=== PATIENT | female | born 1995 | race Caucasian/White ===

== ENCOUNTER → 2016-09-24 | Outpatient (CLI) | payer OTHER ==
[~2016-09-24] MED LIST: ALBUAER2 INH; FLUT110A INH; LEVO88TA PO
[2016-09-24 16:04] LABS: HEMATOCRIT 37.5 % (37-47); MEAN CORPUSCULAR HEMOGLOBIN 27.2 pg (25-34); MEAN CORPUSCULAR HGB CONC 32.8 g/dl (32-36); MEAN PLATELET VOLUME 9.7 fL (7.4-10.4); PLATELET COUNT 350 K/uL (130-400); RED BLOOD COUNT 4.52 M/uL (4.2-5.4); WHITE BLOOD COUNT 5.76 K/uL (4.8-10.8)
[2016-09-27 02:35] LABS: CHLAMYDIA TRACH RNA*** NOT DETECTED (NOT DETECTED); GC (NEIS GONORRHOEAE)RNA** NOT DETECTED (NOT DETECTED)
== END | disposition home or self-care (01) ==
LOC: C.LAB1850 15:28
PROVIDERS: ATTEND Obstetrics & Gynecology
DX: N93.9 Abnormal uterine and vaginal bleeding, unspecified (principal); Z11.3 Encounter for screening for infections with a predominantly sexual mode of transmission

== ENCOUNTER → 2017-01-03 | Outpatient (CLI) | payer OTHER ==
--- NOTE | 2017-01-03 11:02 | DIAGNOSTIC IMAGING REPORT ---
THYROID ULTRASOUND HISTORY: Goiter GOITER COMPARISON: 05/24/2015 FINDINGS: Right lobe: Maximum dimension 6.0 cm. Diffusely heterogeneous Left lobe: Maximum dimension 4.9 cm. Diffusely heterogeneous. Isthmus: No nodules. IMPRESSION: Diffuse heterogeneity of both thyroid lobes. No discrete nodule. No change from the prior exam. Electronically signed by: José Miguel Hunt M.D. 01/03/2017 11:00 AM Dictated Date/Time: 01/03/2017 10:59 AM
[2017-01-03 14:26] LABS: THYROID STIMULATING HORMONE 0.071 uIu/ml (0.300-4.500)
[2017-01-03 15:05] LABS: LYME DISEASE AB IGG NEG (NEG)
[2017-01-03 15:06] LABS: LYME DISEASE AB IGM NEG (NEG)
[2017-01-06 19:39] LABS: MICROSOMAL AB 7 IU/ML (<9); THYROGLOBULIN 1.3 NG/ML (2.8-40.9); TSI <89 % baseline (<140)
== END | disposition home or self-care (01) ==
LOC: C.ULTRBC 10:10
PROVIDERS: ATTEND Nurse Practitioner Family
DX: E04.9 Nontoxic goiter, unspecified (principal); E06.3 Autoimmune thyroiditis; M79.1 Myalgia

== ENCOUNTER → 2017-02-15 | Outpatient (CLI) | payer OTHER ==
[2017-02-15 12:44] LABS: THYROID STIMULATING HORMONE 3.91 uIu/ml (0.300-4.500)
== END | disposition home or self-care (01) ==
LOC: C.LAB1850 10:44
PROVIDERS: ATTEND Internal Medicine Endocrinology, Diabetes & Metabolism
DX: E06.9 Thyroiditis, unspecified (principal); M79.1 Myalgia; R20.9 Unspecified disturbances of skin sensation

== ENCOUNTER → 2017-06-24 | Outpatient (CLI) | payer OTHER ==
[2017-06-24 19:12] LABS: THYROID STIMULATING HORMONE 3.74 uIu/ml (0.300-4.500)
== END | disposition home or self-care (01) ==
LOC: C.LAB 17:54
PROVIDERS: ATTEND Internal Medicine Endocrinology, Diabetes & Metabolism
DX: R53.83 Other fatigue (principal); E06.3 Autoimmune thyroiditis

== ENCOUNTER → 2017-08-05 | Outpatient (CLI) | payer OTHER ==
[2017-08-05 16:50] LABS: MANUAL MICROSCOPIC REQUIRED? YES; URINE APPEARANCE CLOUDY (CLEAR); URINE BILIRUBIN NEG (NEG); URINE COLOR YELLOW; URINE NITRITE NEG (NEG); URINE PH 6.5 (4.5-7.5); UROBILINOGEN NEG (NEG)
[2017-08-05 16:52] LABS: REVIEW REQ? NO
[2017-08-05 17:09] LABS: URINE WBC >30 /hpf (0-5)
[2017-08-05 17:15] LABS: URINE BACTERIA 2+ (NEG); URINE RBC 0-4 /hpf (0-4)
== END | disposition home or self-care (01) ==
LOC: C.LABSPEC 15:54
PROVIDERS: ATTEND Physician Assistant
DX: R39.9 Unspecified symptoms and signs involving the genitourinary system (principal); N90.89 Other specified noninflammatory disorders of vulva and perineum

== ENCOUNTER → 2017-08-12 | Outpatient (CLI) | payer OTHER | END | disposition home or self-care (01) | LOC: C.LAB1850 16:14 | PROVIDERS: ATTEND Physician Assistant | DX: N90.89 Other specified noninflammatory disorders of vulva and perineum (principal) ==

== ENCOUNTER → 2017-08-20 | Outpatient (CLI) | payer OTHER | END | disposition home or self-care (01) | LOC: C.LABSPEC 17:33 | PROVIDERS: ATTEND Nurse Practitioner Adult Health | DX: J02.9 Acute pharyngitis, unspecified (principal) ==

== ENCOUNTER → 2017-08-20 | Outpatient (CLI) | payer OTHER | END | disposition home or self-care (01) | LOC: C.LABSPEC 13:43 | PROVIDERS: ATTEND Physician Assistant | DX: N94.819 Vulvodynia, unspecified (principal) ==

== ENCOUNTER → 2017-08-23 | Outpatient (CLI) | payer OTHER ==
[2017-08-23 12:17] LABS: ESTIMATED AVERAGE GLUCOSE 103 mg/dl; HA1C FLAG Normal (Normal)
== END | disposition home or self-care (01) ==
LOC: C.LAB1850 11:06
PROVIDERS: ATTEND Internal Medicine Endocrinology, Diabetes & Metabolism
DX: Z00.00 Encounter for general adult medical examination without abnormal findings (principal); R61 Generalized hyperhidrosis; R39.9 Unspecified symptoms and signs involving the genitourinary system

== ENCOUNTER 2020-03-16 09:49 | Inpatient (IN) ==
[2020-03-16] MEDS ORDERED: OXYTOCIN 30 UNITS/500 ML BAG IV PRN ×2 (14:00)
--- NOTE | 2020-03-16 14:13 | History & Physical Report ---
Date of Service March 16, 2020 Assessment & Plan (1) Post term over 40 weeks: -Tracing category 2 with accelerations and variability -Patient with documented cervical change -Patient is GBS positive, penicillin will be started per protocol -We will do rapid test for COVID-19 for laboring patient -Epidural per patient request -Reassess patient for membrane rupture after penicillin infusion and epidural placed History of Present Illness Chief Complaint: Contractions Primary Care Provider: NO PCP The patient is a 24-year-old 2 para 0 with an EDC of 14 March, at 40+ weeks gestational age who presents for evaluation of contractions. Patient states that she has been having contractions for the last 12 hours which increased in intensity. She denied rupture of membranes or vaginal bleeding. Patient was watched on labor and delivery for 4 hours and had cervical change and has been admitted. Patient's course was remarkable for late gestational care. Her new OB visit was at 18 weeks gestational age. Patient has a documented history of hypothyroidism with TSH is greater than 3. The patient has declined endoc rinology or therapy for the hypothyroidism throughout the . Patient was made aware repeatedly of the risks associated with untreated hypothyroidism in . Laboratory values for show blood type of O+, antibody negative, rubella immune, hepatitis B negative, she had a negative cell free DNA screen, she had a normal 1 hour Glucola x2, and a positive third trimester beta strep culture. Allergies Allergy/AdvReac Type Severity Reaction Status Date / Time No Known Allergies Allergy Unverified 03/15/20 10:09 Home Medications Home Medications Medication Instructions Recorded Confirmed Type prenat.vits,yaneli,yma-xcex-tuxvk 1 tab PO DAILY 10/02/19 03/15/20 History ferrous sulfate PO 01/06/20 03/14/20 History Patient History Family History (Updated 10/02/19 @ 14:32 by Brenna Nolan) Aunt Family history of diabetes mellitus Cystic fibrosis Mother Heart murmur Hypertension Depression Grandmother Thyroid disease Social History (Updated 10/02/19 @ 14:34 by Brenna Nolan) Preferred Language: [place] Citizen Communication Ability: Effective Monument Installer Required: No Beliefs That Will Affect Care: None marital status: marital status details: Jerome Harmon- (25) [phone] Current Living Situation: Spouse Current Living Situation Comment: lives with spouse, 1 cat, does not change litter current occupational status: employed current occupation: [employer] Other Information That Helps Us Care for You: No Feels Safe at Home: Yes Smoking Status: Never smoker Second Hand Exposure: No ; Hx Alcohol Use: No Hx Substance Use: No Physical Exam Constitutional: WD/WN, vitals as above Respiratory: Auscultation: lungs clear to auscultation bilaterally Cardiovascular: RRR, no murmur, no edema Extremities: no calf tenderness Gastrointestinal (Abdomen): Abdomen: Gravid, vertex, positive heart tones, estimated weight of 8 pounds Genitourinary: Cervix: 3-4/100/-2 Results & Data ([facility]) Vital Signs (Past 12 Hours) Vital Signs Temp Pulse Resp BP 03/16/20 14:00 98.1 F 03/16/20 13:59 103 H 133/82 03/16/20 12:50 98.2 F 18 03/16/20 12:47 90 120/81 03/16/20 10:10 98.2 F 20 03/16/20 09:57 95 H 129/78 03/16/20 09:56 98.2 F 20 Coding Level of Care Code None Diagnoses Post term over 40 weeks O48.0
[2020-03-16] MEDS ORDERED: PENICILLIN G POTASSIUM 6 MU in DEXTROSE 5% 250 ML IV ONE (14:15)
[2020-03-16 14:19] LABS: Hematocrit (blood only) 35.9 % (37-47); Hemoglobin 11.9 g/dL (12.0-16.0); Mean Corpuscular Hemoglobin 28.5 pg (25-34); Mean Corpuscular Volume 86.1 fL (80-100); Mean Platelet Volume 10.5 fL (7.4-10.4); Platelet Count 330 K/uL (130-400); RDW Standard Deviation 43.8 fL (36.4-46.3); Red Blood Count 4.17 M/uL (4.2-5.4); White Blood Count 13.49 K/uL (4.8-10.8)
[2020-03-16 14:20] LABS: Mean Corpuscular Hgb Conc 33.1 g/dL (32-36)
[2020-03-16] MEDS: LACTATED RINGER'S 1,000 ML IV PRN ×2 (14:22→20:15)
[2020-03-16] MEDS ORDERED: ePHEDrine sulfate 50 MG/ML AMP ONE (15:59)
[2020-03-16] MEDS ORDERED: BUPIVACAINE 0.25% 30 ML VIAL ONE (15:59)
[2020-03-16] MEDS ORDERED: fentaNYL 2MCG/ML ROPIV 1.25MG/ML 100 ML BAG EPI ONE (16:00)
[2020-03-16] MEDS ORDERED: fentaNYL citrate 100 MCG/2 ML VIAL ONE (16:00)
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
[2020-03-16] MEDS ORDERED: NALOXONE HCL 0.4 MG/1 ML VIAL/CARP IV PRN (16:49)
[2020-03-16] MEDS ORDERED: ePHEDrine sulfate 50 MG/ML AMP IV PRN (16:49)
[2020-03-16] MEDS ORDERED: NALOXONE HCL 1 MG in SODIUM CHLORIDE 0.9% 1000ML 1,000 ML IV PRN (16:49)
[2020-03-16] MEDS ORDERED: DiphenhydrAMINE HCL 50 MG/ML VIAL IV PRN (16:49)
[2020-03-16] MEDS: PENICILLIN G POTASSIUM 3 MU in DEXTROSE 5% 100 ML IV PRN ×2 (18:31→22:32)
--- NOTE | 2020-03-16 20:02 | Labor Progress Brief Note ---
Date of Service March 16, 2020 Subjective Reason For Note: Routine Evaluation comfortable with epidural Assessment & Plan (1) Post term over 40 weeks: - tracing Cat II, moderate variability with accels - no cervical change - IUPC placed - pitocin augmentation - COVID 19 Neg Admission and Anticipated Discharge Date Admission Date: March 16, 2020 Physical Exam Genitourinary: Cervix: 4/100/-2; AROM, clear, IUPC placed Results & Data ([facility]) Vital Signs (Past 12 Hours) Vital Signs Temp Pulse Resp BP Pulse Ox 03/16/20 19:56 115 H 100 03/16/20 19:51 121 H 96 03/16/20 19:46 85 113/59 L 93 03/16/20 19:44 87 94 03/16/20 19:41 90 100 03/16/20 19:36 91 H 99 03/16/20 19:32 81 108/59 L 03/16/20 19:31 87 100 03/16/20 19:26 97 H 100 03/16/20 19:21 91 H 99 03/16/20 19:16 123 H 100 03/16/20 19:11 108 H 100 03/16/20 19:06 107 H 100 03/16/20 19:05 98.4 F 18 03/16/20 19:01 100 H 109/59 L 100 03/16/20 19:00 18 03/16/20 18:56 88 97 03/16/20 18:51 92 H 100 03/16/20 18:46 99 H 107/64 100 03/16/20 18:41 93 H 100 03/16/20 18:36 94 H 100 03/16/20 18:31 99 H 100 03/16/20 18:30 95 H 107/63 03/16/20 18:26 97 H 100 03/16/20 18:21 92 H 100 03/16/20 18:16 90 107/57 L 100 03/16/20 18:11 90 99 03/16/20 18:06 91 H 99 03/16/20 18:01 93 H 100 03/16/20 18:00 90 103/59 L 03/16/20 17:56 87 100 03/16/20 17:51 105 H 100 03/16/20 17:46 88 100 03/16/20 17:45 91 H 103/58 L 03/16/20 17:42 95 H 90 03/16/20 17:41 96 H 18 97 03/16/20 17:36 87 100 03/16/20 17:31 90 100 03/16/20 17:30 100 H 115/67 03/16/20 17:26 91 H 100 03/16/20 17:21 88 100 03/16/20 17:20 18 03/16/20 17:16 88 114/65 100 03/16/20 17:11 83 100 03/16/20 17:06 83 100 03/16/20 17:04 84 91 03/16/20 17:01 81 116/64 100 03/16/20 16:56 90 97 03/16/20 16:51 89 99 03/16/20 16:50 18 03/16/20 16:46 92 H 99 03/16/20 16:43 104 H 126/70 03/16/20 16:41 98 H 100 03/16/20 16:40 105 H 125/66 03/16/20 16:37 100 H 123/64 03/16/20 16:36 95 H 99 03/16/20 16:34 118/57 L 03/16/20 16:31 101 H 115/59 L 99 03/16/20 16:28 90 130/72 03/16/20 16:26 94 H 99 03/16/20 16:21 108 H 100 03/16/20 16:16 81 100 03/16/20 16:11 80 99 03/16/20 16:06 83 99 03/16/20 16:05 90 129/71 03/16/20 15:50 18 03/16/20 14:50 18 03/16/20 14:24 18 03/16/20 14:00 98.1 F 18 03/16/20 13:59 103 H 133/82 03/16/20 12:50 98.2 F 18 03/16/20 12:47 90 120/81 03/16/20 10:10 98.2 F 20 03/16/20 09:57 95 H 129/78 03/16/20 09:56 98.2 F 20 Coding Level of Care Code None Diagnoses Post term over 40 weeks O48.0
[2020-03-17] MEDS: fentaNYL 2MCG/ML ROPIV 1.25MG/ML 100 ML BAG EPI PRN ×3 (00:52→14:15)
[2020-03-17] MEDS: PENICILLIN G POTASSIUM 3 MU in DEXTROSE 5% 100 ML IV PRN ×4 (02:15→14:14)
--- NOTE | 2020-03-17 03:23 | Labor Progress Brief Note ---
Date of Service March 17, 2020 Subjective Reason For Note: Routine Evaluation Assessment & Plan (1) Post term over 40 weeks: - tracing Cat II, moderate variability with accels - molding developing, but cervical change occuring - contractions not consistently 200 MVU's - will continue to increase pitocin Admission and Anticipated Discharge Date Admission Date: March 16, 2020 Physical Exam Genitourinary: 7/100/-2; posterior, molding Results & Data ([facility]) Vital Signs (Past 12 Hours) Vital Signs Temp Pulse Resp BP Pulse Ox 03/17/20 03:18 107 H 86 L 03/17/20 03:17 103 H 100 03/17/20 03:16 101 H 110/70 03/17/20 03:12 84 100 03/17/20 03:10 102 H 87 L 03/17/20 03:07 95 H 100 03/17/20 03:02 89 100 03/17/20 03:01 89 110/60 03/17/20 02:57 99 H 99 03/17/20 02:52 76 100 03/17/20 02:47 82 99 03/17/20 02:46 85 106/65 03/17/20 02:42 91 H 99 03/17/20 02:37 86 100 03/17/20 02:32 85 100 03/17/20 02:31 85 113/67 03/17/20 02:29 88 82 L 03/17/20 02:27 88 100 03/17/20 02:22 105 H 100 03/17/20 02:17 103 H 92 03/17/20 02:16 98.1 F 03/17/20 02:15 86 122/77 03/17/20 02:12 82 100 03/17/20 02:07 78 100 03/17/20 02:02 77 100 03/17/20 02:00 84 124/80 03/17/20 01:57 84 100 03/17/20 01:52 84 100 03/17/20 01:47 84 118/68 100 03/17/20 01:41 87 100 03/17/20 01:36 85 100 03/17/20 01:32 85 88 L 03/17/20 01:31 84 91 03/17/20 01:30 73 100/58 L 03/17/20 01:26 76 91 03/17/20 01:21 69 100 07/02/20 01:16 74 100 03/17/20 01:15 77 98/56 L 03/17/20 01:11 75 100 03/17/20 01:06 72 100 03/17/20 01:01 76 104/52 L 100 03/17/20 01:00 98.1 F 82 18 75 L 03/17/20 00:56 77 100 03/17/20 00:51 76 99 03/17/20 00:46 72 100 03/17/20 00:45 72 105/59 L 03/17/20 00:41 78 99 03/17/20 00:36 77 100 03/17/20 00:31 70 100/55 L 100 03/17/20 00:26 75 100 03/17/20 00:21 73 100 03/17/20 00:17 71 103/55 L 03/17/20 00:16 79 97 03/17/20 00:12 88 20 90 03/17/20 00:11 88 94 03/17/20 00:06 80 100 03/17/20 00:01 78 120/65 100 03/17/20 00:00 82 93 03/16/20 23:56 79 100 03/16/20 23:51 84 100 03/16/20 23:46 83 100 03/16/20 23:45 81 120/67 03/16/20 23:41 88 100 03/16/20 23:36 81 100 03/16/20 23:31 84 119/66 100 03/16/20 23:26 77 100 03/16/20 23:21 82 100 03/16/20 23:16 81 106/50 L 100 03/16/20 23:11 88 100 03/16/20 23:07 98.4 F 18 03/16/20 23:06 88 100 03/16/20 23:01 96 H 100 03/16/20 22:56 86 100 03/16/20 22:51 89 98 03/16/20 22:46 86 121/65 100 03/16/20 22:41 86 92 03/16/20 22:36 93 H 100 03/16/20 22:32 88 122/74 03/16/20 22:31 96 H 100 03/16/20 22:30 115 H 90 03/16/20 22:26 80 100 03/16/20 22:21 72 99 03/16/20 22:16 75 99 03/16/20 22:15 76 118/69 03/16/20 22:11 78 99 03/16/20 22:06 71 100 03/16/20 22:01 76 100 03/16/20 22:00 71 16 119/70 03/16/20 21:56 76 100 03/16/20 21:51 73 100 03/16/20 21:46 69 100 03/16/20 21:45 71 120/72 03/16/20 21:41 73 100 03/16/20 21:36 73 100 03/16/20 21:34 75 91 03/16/20 21:31 82 100 03/16/20 21:30 76 114/72 03/16/20 21:26 71 100 03/16/20 21:21 74 100 03/16/20 21:17 67 117/73 03/16/20 21:16 69 99 03/16/20 21:11 73 99 03/16/20 21:06 83 100 03/16/20 21:01 68 114/62 99 03/16/20 20:56 71 98 03/16/20 20:51 77 98 03/16/20 20:49 98.4 F 18 03/16/20 20:46 101 H 115/77 99 03/16/20 20:41 84 100 03/16/20 20:36 87 99 03/16/20 20:31 86 96 03/16/20 20:30 77 138/70 03/16/20 20:26 87 99 03/16/20 20:21 85 99 03/16/20 20:16 90 127/70 99 03/16/20 20:11 97 H 90 03/16/20 20:06 88 100 03/16/20 20:01 99 H 100 03/16/20 20:00 91 H 126/74 03/16/20 19:57 98.4 F 18 03/16/20 19:56 115 H 100 03/16/20 19:51 121 H 96 03/16/20 19:46 85 113/59 L 93 03/16/20 19:44 87 94 03/16/20 19:41 90 100 03/16/20 19:36 91 H 99 03/16/20 19:32 81 108/59 L 03/16/20 19:31 87 100 03/16/20 19:26 97 H 100 03/16/20 19:21 91 H 99 03/16/20 19:16 123 H 100 03/16/20 19:11 108 H 100 03/16/20 19:06 107 H 100 03/16/20 19:05 98.4 F 18 03/16/20 19:01 100 H 109/59 L 100 03/16/20 19:00 18 03/16/20 18:56 88 97 03/16/20 18:51 92 H 100 03/16/20 18:46 99 H 107/64 100 03/16/20 18:41 93 H 100 03/16/20 18:36 94 H 100 03/16/20 18:31 99 H 100 03/16/20 18:30 95 H 107/63 03/16/20 18:26 97 H 100 03/16/20 18:21 92 H 100 03/16/20 18:16 90 107/57 L 100 03/16/20 18:11 90 99 03/16/20 18:06 91 H 99 03/16/20 18:01 93 H 100 03/16/20 18:00 90 103/59 L 03/16/20 17:56 87 100 03/16/20 17:51 105 H 100 03/16/20 17:46 88 100 03/16/20 17:45 91 H 103/58 L 03/16/20 17:42 95 H 90 03/16/20 17:41 96 H 18 97 03/16/20 17:36 87 100 03/16/20 17:31 90 100 03/16/20 17:30 100 H 115/67 03/16/20 17:26 91 H 100 03/16/20 17:21 88 100 03/16/20 17:20 18 03/16/20 17:16 88 114/65 100 03/16/20 17:11 83 100 03/16/20 17:06 83 100 03/16/20 17:04 84 91 03/16/20 17:01 81 116/64 100 03/16/20 16:56 90 97 03/16/20 16:51 89 99 03/16/20 16:50 18 03/16/20 16:46 92 H 99 03/16/20 16:43 104 H 126/70 03/16/20 16:41 98 H 100 03/16/20 16:40 105 H 125/66 03/16/20 16:37 100 H 123/64 03/16/20 16:36 95 H 99 03/16/20 16:34 118/57 L 03/16/20 16:31 101 H 115/59 L 99 03/16/20 16:28 90 130/72 03/16/20 16:26 94 H 99 03/16/20 16:21 108 H 100 03/16/20 16:16 81 100 03/16/20 16:11 80 99 03/16/20 16:06 83 99 03/16/20 16:05 90 129/71 03/16/20 15:50 18 Coding Level of Care Code None Diagnoses Post term over 40 weeks O48.0
--- NOTE | 2020-03-17 06:38 | Labor Progress Brief Note ---
Date of Service March 17, 2020 Subjective Reason For Note: Routine Evaluation Assessment & Plan (1) Post term over 40 weeks: - tracing Cat II - pt making progress, but slow - will continue with pitocin Admission and Anticipated Discharge Date Admission Date: March 16, 2020 Physical Exam Genitourinary: Cervix: 8/100/-1,molding Results & Data ([facility]) Vital Signs (Past 12 Hours) Vital Signs Temp Pulse Resp BP Pulse Ox 03/17/20 06:33 95 H 100 03/17/20 06:32 97 H 134/82 03/17/20 06:27 92 H 100 03/17/20 06:22 98 H 100 03/17/20 06:17 99 H 100 03/17/20 06:15 85 112/57 L 03/17/20 06:12 84 100 03/17/20 06:07 91 H 100 03/17/20 06:02 91 H 108/50 L 100 03/17/20 06:01 83 82 L 03/17/20 05:57 103 H 97 03/17/20 05:52 82 99 03/17/20 05:47 81 100 03/17/20 05:45 86 128/71 03/17/20 05:42 83 100 03/17/20 05:37 83 100 03/17/20 05:32 98 H 100 03/17/20 05:31 79 130/73 03/17/20 05:27 78 99 03/17/20 05:22 79 98 03/17/20 05:17 88 125/71 100 03/17/20 05:15 97 H 125/77 03/17/20 05:12 82 98 03/17/20 05:07 82 99 03/17/20 05:02 95 H 100 03/17/20 05:01 84 126/76 03/17/20 05:00 16 03/17/20 04:57 79 98 03/17/20 04:52 80 99 03/17/20 04:47 88 99 03/17/20 04:46 80 128/73 03/17/20 04:42 83 99 03/17/20 04:37 79 98 03/17/20 04:32 83 98 03/17/20 04:31 78 120/68 03/17/20 04:27 79 98 03/17/20 04:22 88 100 03/17/20 04:17 89 98 03/17/20 04:15 86 116/70 03/17/20 04:12 81 98 03/17/20 04:07 80 98 03/17/20 04:04 98.6 F 18 03/17/20 04:02 82 98 03/17/20 04:01 85 118/71 03/17/20 03:57 86 99 03/17/20 03:52 79 99 03/17/20 03:47 84 100 03/17/20 03:46 80 114/55 L 03/17/20 03:42 88 100 03/17/20 03:37 88 100 03/17/20 03:33 99 H 88 L 03/17/20 03:32 107 H 100 03/17/20 03:31 91 H 129/79 03/17/20 03:27 105 H 95 03/17/20 03:24 20 03/17/20 03:22 105 H 99 03/17/20 03:18 107 H 86 L 03/17/20 03:17 103 H 100 03/17/20 03:16 101 H 110/70 03/17/20 03:12 84 100 03/17/20 03:10 102 H 87 L 03/17/20 03:07 95 H 100 03/17/20 03:02 89 100 03/17/20 03:01 89 110/60 03/17/20 02:57 99 H 99 03/17/20 02:52 76 100 03/17/20 02:47 82 99 03/17/20 02:46 85 106/65 03/17/20 02:42 91 H 99 03/17/20 02:37 86 100 03/17/20 02:32 85 100 03/17/20 02:31 85 113/67 03/17/20 02:29 88 82 L 03/17/20 02:27 88 100 03/17/20 02:22 105 H 100 03/17/20 02:17 103 H 92 03/17/20 02:16 98.1 F 03/17/20 02:15 86 122/77 03/17/20 02:12 82 100 03/17/20 02:07 78 100 03/17/20 02:02 77 100 03/17/20 02:00 84 124/80 03/17/20 01:57 84 100 03/17/20 01:52 84 100 03/17/20 01:47 84 118/68 100 03/17/20 01:41 87 100 03/17/20 01:36 85 100 03/17/20 01:32 85 88 L 03/17/20 01:31 84 91 03/17/20 01:30 73 100/58 L 03/17/20 01:26 76 91 03/17/20 01:21 69 100 03/17/20 01:16 74 100 03/17/20 01:15 77 98/56 L 03/17/20 01:11 75 100 03/17/20 01:06 72 100 03/17/20 01:01 76 104/52 L 100 03/17/20 01:00 98.1 F 82 18 75 L 03/17/20 00:56 77 100 03/17/20 00:51 76 99 03/17/20 00:46 72 100 03/17/20 00:45 72 105/59 L 03/17/20 00:41 78 99 03/17/20 00:36 77 100 03/17/20 00:31 70 100/55 L 100 03/17/20 00:26 75 100 03/17/20 00:21 73 100 03/17/20 00:17 71 103/55 L 03/17/20 00:16 79 97 03/17/20 00:12 88 20 90 03/17/20 00:11 88 94 03/17/20 00:06 80 100 03/17/20 00:01 78 120/65 100 03/17/20 00:00 82 93 03/16/20 23:56 79 100 03/16/20 23:51 84 100 03/16/20 23:46 83 100 03/16/20 23:45 81 120/67 03/16/20 23:41 88 100 03/16/20 23:36 81 100 03/16/20 23:31 84 119/66 100 03/16/20 23:26 77 100 03/16/20 23:21 82 100 03/16/20 23:16 81 106/50 L 100 03/16/20 23:11 88 100 03/16/20 23:07 98.4 F 18 03/16/20 23:06 88 100 03/16/20 23:01 96 H 100 03/16/20 22:56 86 100 03/16/20 22:51 89 98 03/16/20 22:46 86 121/65 100 03/16/20 22:41 86 92 03/16/20 22:36 93 H 100 03/16/20 22:32 88 122/74 03/16/20 22:31 96 H 100 03/16/20 22:30 115 H 90 03/16/20 22:26 80 100 03/16/20 22:21 72 99 03/16/20 22:16 75 99 03/16/20 22:15 76 118/69 03/16/20 22:11 78 99 03/16/20 22:06 71 100 03/16/20 22:01 76 100 03/16/20 22:00 71 16 119/70 03/16/20 21:56 76 100 03/16/20 21:51 73 100 03/16/20 21:46 69 100 03/16/20 21:45 71 120/72 03/16/20 21:41 73 100 03/16/20 21:36 73 100 03/16/20 21:34 75 91 03/16/20 21:31 82 100 03/16/20 21:30 76 114/72 03/16/20 21:26 71 100 03/16/20 21:21 74 100 03/16/20 21:17 67 117/73 03/16/20 21:16 69 99 03/16/20 21:11 73 99 03/16/20 21:06 83 100 03/16/20 21:01 68 114/62 99 03/16/20 20:56 71 98 03/16/20 20:51 77 98 03/16/20 20:49 98.4 F 18 03/16/20 20:46 101 H 115/77 99 03/16/20 20:41 84 100 03/16/20 20:36 87 99 03/16/20 20:31 86 96 03/16/20 20:30 77 138/70 03/16/20 20:26 87 99 03/16/20 20:21 85 99 03/16/20 20:16 90 127/70 99 03/16/20 20:11 97 H 90 03/16/20 20:06 88 100 03/16/20 20:01 99 H 100 03/16/20 20:00 91 H 126/74 03/16/20 19:57 98.4 F 18 03/16/20 19:56 115 H 100 03/16/20 19:51 121 H 96 03/16/20 19:46 85 113/59 L 93 03/16/20 19:44 87 94 03/16/20 19:41 90 100 03/16/20 19:36 91 H 99 03/16/20 19:32 81 108/59 L 03/16/20 19:31 87 100 03/16/20 19:26 97 H 100 03/16/20 19:21 91 H 99 03/16/20 19:16 123 H 100 03/16/20 19:11 108 H 100 03/16/20 19:06 107 H 100 03/16/20 19:05 98.4 F 18 03/16/20 19:01 100 H 109/59 L 100 03/16/20 19:00 18 03/16/20 18:56 88 97 03/16/20 18:51 92 H 100 03/16/20 18:46 99 H 107/64 100 03/16/20 18:41 93 H 100 03/16/20 18:36 94 H 100 Coding Level of Care Code None Diagnoses Post term over 40 weeks O48.0
[2020-03-17] MEDS: LACTATED RINGER'S 1,000 ML IV PRN (07:24)
--- NOTE | 2020-03-17 08:55 | Labor Progress Brief Note ---
Date of Service March 17, 2020 Subjective Patient uncomfortable with contractions, has a "hot spot." FHT Cat 1 [place] Q2 On pitocin, IUPC in place. My exam is 7-8/100/-1, some moulding of head. We discussed that this is not much different from Dr Ramirez's exam. Discussed that will continue to labor, will plan to recheck cervix in about 2 hours, and if no change will consider section. She is agreeable of this plan. Assessment & Plan Admission and Anticipated Discharge Date Admission Date: March 16, 2020 Results & Data ([facility]) Vital Signs (Past 12 Hours) Vital Signs Temp Pulse Resp BP Pulse Ox 03/17/20 08:43 94 H 98 03/17/20 08:38 92 H 100 03/17/20 08:36 97 H 77 L 03/17/20 08:33 89 100 03/17/20 08:30 81 131/76 03/17/20 08:28 84 100 03/17/20 08:23 84 100 03/17/20 08:18 80 98 03/17/20 08:15 77 133/74 03/17/20 08:13 82 99 03/17/20 08:08 103 H 99 03/17/20 08:06 114 H 83 L 03/17/20 08:03 100 H 100 03/17/20 08:00 90 129/71 03/17/20 07:58 97 H 97 03/17/20 07:53 85 99 03/17/20 07:48 85 99 03/17/20 07:45 98 H 128/70 03/17/20 07:43 93 H 100 03/17/20 07:40 105 H 88 L 03/17/20 07:38 105 H 91 03/17/20 07:33 102 H 97 03/17/20 07:30 18 03/17/20 07:28 115 H 98 03/17/20 07:23 98 H 98 03/17/20 07:18 36.9 C 109 H 18 98 03/17/20 07:15 102 H 125/67 03/17/20 07:13 88 100 03/17/20 07:08 101 H 99 03/17/20 07:03 95 H 100 03/17/20 07:01 88 127/71 03/17/20 06:58 94 H 100 03/17/20 06:53 101 H 99 03/17/20 06:48 101 H 99 03/17/20 06:45 101 H 118/69 03/17/20 06:43 108 H 99 03/17/20 06:38 108 H 98 03/17/20 06:36 109 H 88 L 03/17/20 06:33 95 H 100 03/17/20 06:32 97 H 134/82 03/17/20 06:27 92 H 100 03/17/20 06:22 98 H 100 03/17/20 06:17 99 H 100 03/17/20 06:15 36.9 C 85 18 112/57 L 03/17/20 06:12 84 100 03/17/20 06:07 91 H 100 03/17/20 06:02 91 H 108/50 L 100 03/17/20 06:01 83 82 L 03/17/20 05:57 103 H 97 03/17/20 05:52 82 99 03/17/20 05:47 81 100 03/17/20 05:45 86 128/71 03/17/20 05:42 83 100 03/17/20 05:37 83 100 03/17/20 05:32 98 H 100 03/17/20 05:31 79 130/73 03/17/20 05:27 78 99 03/17/20 05:22 79 98 03/17/20 05:17 88 125/71 100 03/17/20 05:15 97 H 125/77 03/17/20 05:12 82 98 03/17/20 05:07 82 99 03/17/20 05:02 95 H 100 03/17/20 05:01 84 126/76 03/17/20 05:00 16 03/17/20 04:57 79 98 03/17/20 04:52 80 99 03/17/20 04:47 88 99 03/17/20 04:46 80 128/73 03/17/20 04:42 83 99 03/17/20 04:37 79 98 03/17/20 04:32 83 98 03/17/20 04:31 78 120/68 03/17/20 04:27 79 98 03/17/20 04:22 88 100 03/17/20 04:17 89 98 03/17/20 04:15 86 116/70 0702/20 04:12 81 98 03/17/20 04:07 80 98 03/17/20 04:04 37.0 C 18 03/17/20 04:02 82 98 03/17/20 04:01 85 118/71 03/17/20 03:57 86 99 03/17/20 03:52 79 99 03/17/20 03:47 84 100 03/17/20 03:46 80 114/55 L 03/17/20 03:42 88 100 03/17/20 03:37 88 100 03/17/20 03:33 99 H 88 L 03/17/20 03:32 107 H 100 03/17/20 03:31 91 H 129/79 03/17/20 03:27 105 H 95 03/17/20 03:24 20 03/17/20 03:22 105 H 99 03/17/20 03:18 107 H 86 L 03/17/20 03:17 103 H 100 03/17/20 03:16 101 H 110/70 03/17/20 03:12 84 100 03/17/20 03:10 102 H 87 L 03/17/20 03:07 95 H 100 03/17/20 03:02 89 100 03/17/20 03:01 89 110/60 03/17/20 02:57 99 H 99 03/17/20 02:52 76 100 03/17/20 02:47 82 99 03/17/20 02:46 85 106/65 03/17/20 02:42 91 H 99 03/17/20 02:37 86 100 03/17/20 02:32 85 100 03/17/20 02:31 85 113/67 03/17/20 02:29 88 82 L 03/17/20 02:27 88 100 03/17/20 02:22 105 H 100 03/17/20 02:17 103 H 92 03/17/20 02:16 36.7 C 03/17/20 02:15 86 122/77 03/17/20 02:12 82 100 03/17/20 02:07 78 100 03/17/20 02:02 77 100 03/17/20 02:00 84 124/80 03/17/20 01:57 84 100 03/17/20 01:52 84 100 03/17/20 01:47 84 118/68 100 03/17/20 01:41 87 100 03/17/20 01:36 85 100 03/17/20 01:32 85 88 L 03/17/20 01:31 84 91 03/17/20 01:30 73 100/58 L 03/17/20 01:26 76 91 03/17/20 01:21 69 100 03/17/20 01:16 74 100 03/17/20 01:15 77 98/56 L 03/17/20 01:11 75 100 03/17/20 01:06 72 100 03/17/20 01:01 76 104/52 L 100 03/17/20 01:00 36.7 C 82 18 75 L 03/17/20 00:56 77 100 03/17/20 00:51 76 99 03/17/20 00:46 72 100 03/17/20 00:45 72 105/59 L 03/17/20 00:41 78 99 03/17/20 00:36 77 100 03/17/20 00:31 70 100/55 L 100 03/17/20 00:26 75 100 03/17/20 00:21 73 100 03/17/20 00:17 71 103/55 L 03/17/20 00:16 79 97 03/17/20 00:12 88 20 90 03/17/20 00:11 88 94 03/17/20 00:06 80 100 03/17/20 00:01 78 120/65 100 03/17/20 00:00 82 93 03/16/20 23:56 79 100 03/16/20 23:51 84 100 03/16/20 23:46 83 100 03/16/20 23:45 81 120/67 03/16/20 23:41 88 100 03/16/20 23:36 81 100 03/16/20 23:31 84 119/66 100 03/16/20 23:26 77 100 03/16/20 23:21 82 100 03/16/20 23:16 81 106/50 L 100 03/16/20 23:11 88 100 03/16/20 23:07 36.9 C 18 03/16/20 23:06 88 100 03/16/20 23:01 96 H 100 03/16/20 22:56 86 100 03/16/20 22:51 89 98 03/16/20 22:46 86 121/65 100 03/16/20 22:41 86 92 03/16/20 22:36 93 H 100 03/16/20 22:32 88 122/74 03/16/20 22:31 96 H 100 03/16/20 22:30 115 H 90 03/16/20 22:26 80 100 03/16/20 22:21 72 99 03/16/20 22:16 75 99 03/16/20 22:15 76 118/69 03/16/20 22:11 78 99 03/16/20 22:06 71 100 03/16/20 22:01 76 100 03/16/20 22:00 71 16 119/70 03/16/20 21:56 76 100 03/16/20 21:51 73 100 03/16/20 21:46 69 100 03/16/20 21:45 71 120/72 03/16/20 21:41 73 100 03/16/20 21:36 73 100 03/16/20 21:34 75 91 03/16/20 21:31 82 100 03/16/20 21:30 76 114/72 03/16/20 21:26 71 100 03/16/20 21:21 74 100 03/16/20 21:17 67 117/73 03/16/20 21:16 69 99 03/16/20 21:11 73 99 03/16/20 21:06 83 100 03/16/20 21:01 68 114/62 99 03/16/20 20:56 71 98 03/16/20 20:51 77 98 03/16/20 20:49 36.9 C 18 Coding Level of Care Code None
--- NOTE | 2020-03-17 11:37 | Labor Progress Brief Note ---
Date of Service March 17, 2020 Subjective Comfortable with epidural. FHT Cat 1 [place] Q 2 SVE 9/100/0 Will continue pitocin. There has been cervical change since last exam. Continue labor. Assessment & Plan Admission and Anticipated Discharge Date Admission Date: March 16, 2020 Results & Data ([facility]) Vital Signs (Past 12 Hours) Vital Signs Temp Pulse Resp BP Pulse Ox 03/17/20 11:33 88 93 03/17/20 11:30 96 H 140/73 03/17/20 11:28 118 H 73 L 03/17/20 11:23 96 H 100 03/17/20 11:18 115 H 97 03/17/20 11:13 106 H 100 03/17/20 11:08 90 100 03/17/20 11:03 98 H 98 03/17/20 11:01 87 138/58 L 03/17/20 10:58 97 H 100 03/17/20 10:53 89 98 03/17/20 10:52 96 H 85 L 03/17/20 10:50 36.9 C 18 03/17/20 10:48 86 100 03/17/20 10:45 100 H 142/69 H 03/17/20 10:43 86 100 03/17/20 10:38 93 H 97 03/17/20 10:33 85 100 03/17/20 10:30 88 135/69 03/17/20 10:28 88 99 03/17/20 10:23 84 99 03/17/20 10:18 85 100 03/17/20 10:16 85 136/74 03/17/20 10:13 102 H 84 L 03/17/20 10:10 16 03/17/20 10:08 82 99 03/17/20 10:03 83 99 03/17/20 10:02 94 H 122/62 03/17/20 09:58 84 98 03/17/20 09:53 89 99 03/17/20 09:48 89 99 03/17/20 09:46 85 131/68 03/17/20 09:43 84 99 03/17/20 09:40 18 03/17/20 09:38 83 99 03/17/20 09:33 83 99 03/17/20 09:30 85 119/66 03/17/20 09:28 82 99 03/17/20 09:23 87 100 03/17/20 09:18 81 99 03/17/20 09:15 90 114/63 03/17/20 09:13 84 100 03/17/20 09:08 85 100 03/17/20 09:03 90 88 L 03/17/20 09:02 86 84 L 03/17/20 09:00 87 18 113/64 03/17/20 08:58 90 99 03/17/20 08:55 87 88 L 03/17/20 08:53 97 H 98 03/17/20 08:48 86 100 03/17/20 08:46 95 H 128/59 L 03/17/20 08:43 94 H 98 03/17/20 08:38 92 H 100 03/17/20 08:37 36.9 C 18 03/17/20 08:36 97 H 77 L 03/17/20 08:33 89 100 03/17/20 08:30 81 18 131/76 03/17/20 08:28 84 100 03/17/20 08:23 84 100 03/17/20 08:18 80 98 03/17/20 08:15 77 133/74 03/17/20 08:13 82 99 03/17/20 08:08 103 H 99 03/17/20 08:06 114 H 83 L 03/17/20 08:03 100 H 100 03/17/20 08:00 90 129/71 03/17/20 07:58 97 H 97 03/17/20 07:53 85 99 03/17/20 07:48 85 99 03/17/20 07:45 98 H 128/70 03/17/20 07:43 93 H 100 03/17/20 07:40 105 H 88 L 03/17/20 07:38 105 H 91 03/17/20 07:33 102 H 97 03/17/20 07:30 18 03/17/20 07:28 115 H 98 03/17/20 07:23 98 H 98 03/17/20 07:18 36.9 C 109 H 18 98 03/17/20 07:15 102 H 125/67 03/17/20 07:13 88 100 03/17/20 07:08 101 H 99 03/17/20 07:03 95 H 100 03/17/20 07:01 88 127/71 03/17/20 06:58 94 H 100 03/17/20 06:53 101 H 99 03/17/20 06:48 101 H 99 03/17/20 06:45 101 H 118/69 03/17/20 06:43 108 H 99 03/17/20 06:38 108 H 98 03/17/20 06:36 109 H 88 L 03/17/20 06:33 95 H 100 03/17/20 06:32 97 H 134/82 03/17/20 06:27 92 H 100 03/17/20 06:22 98 H 100 03/17/20 06:17 99 H 100 03/17/20 06:15 36.9 C 85 18 112/57 L 03/17/20 06:12 84 100 03/17/20 06:07 91 H 100 03/17/20 06:02 91 H 108/50 L 100 03/17/20 06:01 83 82 L 03/17/20 05:57 103 H 97 03/17/20 05:52 82 99 03/17/20 05:47 81 100 03/17/20 05:45 86 128/71 03/17/20 05:42 83 100 03/17/20 05:37 83 100 03/17/20 05:32 98 H 100 03/17/20 05:31 79 130/73 03/17/20 05:27 78 99 03/17/20 05:22 79 98 03/17/20 05:17 88 125/71 100 03/17/20 05:15 97 H 125/77 03/17/20 05:12 82 98 03/17/20 05:07 82 99 03/17/20 05:02 95 H 100 03/17/20 05:01 84 126/76 03/17/20 05:00 16 03/17/20 04:57 79 98 03/17/20 04:52 80 99 03/17/20 04:47 88 99 03/17/20 04:46 80 128/73 03/17/20 04:42 83 99 03/17/20 04:37 79 98 03/17/20 04:32 83 98 03/17/20 04:31 78 120/68 03/17/20 04:27 79 98 03/17/20 04:22 88 100 03/17/20 04:17 89 98 03/17/20 04:15 86 116/70 03/17/20 04:12 81 98 03/17/20 04:07 80 98 03/17/20 04:04 37.0 C 18 03/17/20 04:02 82 98 03/17/20 04:01 85 118/71 03/17/20 03:57 86 99 03/17/20 03:52 79 99 03/17/20 03:47 84 100 03/17/20 03:46 80 114/55 L 03/17/20 03:42 88 100 03/17/20 03:37 88 100 03/17/20 03:33 99 H 88 L 03/17/20 03:32 107 H 100 03/17/20 03:31 91 H 129/79 03/17/20 03:27 105 H 95 03/17/20 03:24 20 03/17/20 03:22 105 H 99 03/17/20 03:18 107 H 86 L 03/17/20 03:17 103 H 100 03/17/20 03:16 101 H 110/70 03/17/20 03:12 84 100 03/17/20 03:10 102 H 87 L 03/17/20 03:07 95 H 100 03/17/20 03:02 89 100 03/17/20 03:01 89 110/60 03/17/20 02:57 99 H 99 03/17/20 02:52 76 100 03/17/20 02:47 82 99 03/17/20 02:46 85 106/65 03/17/20 02:42 91 H 99 03/17/20 02:37 86 100 03/17/20 02:32 85 100 03/17/20 02:31 85 113/67 03/17/20 02:29 88 82 L 03/17/20 02:27 88 100 03/17/20 02:22 105 H 100 03/17/20 02:17 103 H 92 03/17/20 02:16 36.7 C 03/17/20 02:15 86 122/77 03/17/20 02:12 82 100 03/17/20 02:07 78 100 03/17/20 02:02 77 100 03/17/20 02:00 84 124/80 03/17/20 01:57 84 100 03/17/20 01:52 84 100 03/17/20 01:47 84 118/68 100 03/17/20 01:41 87 100 03/17/20 01:36 85 100 03/17/20 01:32 85 88 L 03/17/20 01:31 84 91 03/17/20 01:30 73 100/58 L 03/17/20 01:26 76 91 03/17/20 01:21 69 100 03/17/20 01:16 74 100 03/17/20 01:15 77 98/56 L 03/17/20 01:11 75 100 03/17/20 01:06 72 100 03/17/20 01:01 76 104/52 L 100 03/17/20 01:00 36.7 C 82 18 75 L 03/17/20 00:56 77 100 03/17/20 00:51 76 99 03/17/20 00:46 72 100 03/17/20 00:45 72 105/59 L 03/17/20 00:41 78 99 03/17/20 00:36 77 100 03/17/20 00:31 70 100/55 L 100 03/17/20 00:26 75 100 03/17/20 00:21 73 100 03/17/20 00:17 71 103/55 L 03/17/20 00:16 79 97 03/17/20 00:12 88 20 90 03/17/20 00:11 88 94 03/17/20 00:06 80 100 03/17/20 00:01 78 120/65 100 03/17/20 00:00 82 93 03/16/20 23:56 79 100 03/16/20 23:51 84 100 03/16/20 23:46 83 100 03/16/20 23:45 81 120/67 03/16/20 23:41 88 100 03/16/20 23:36 81 100 Coding Level of Care Code None
--- NOTE | 2020-03-17 13:49 | Labor Progress Brief Note ---
Date of Service March 17, 2020 Subjective Feeling more pressure. FHT Cat 1 [place] Q 2 SVE rim with anterior lip/100/0 to +1 station Given that patient has made change, will continue to labor. Assessment & Plan Admission and Anticipated Discharge Date Admission Date: March 16, 2020 Results & Data ([facility]) Vital Signs (Past 12 Hours) Vital Signs Temp Pulse Resp BP Pulse Ox 03/17/20 13:46 108 H 86 L 03/17/20 13:43 109 H 100 03/17/20 13:41 100 H 87 L 03/17/20 13:38 93 H 94 03/17/20 13:33 87 98 03/17/20 13:31 86 135/80 03/17/20 13:29 96 H 84 L 03/17/20 13:28 96 H 92 03/17/20 13:23 94 H 100 03/17/20 13:21 99 H 89 L 03/17/20 13:18 107 H 100 03/17/20 13:15 88 131/77 03/17/20 13:14 102 H 84 L 03/17/20 13:13 106 H 94 03/17/20 13:08 97 H 100 03/17/20 13:03 85 100 03/17/20 13:00 93 H 132/80 03/17/20 12:58 93 H 99 03/17/20 12:53 87 100 03/17/20 12:48 89 100 03/17/20 12:45 96 H 127/73 03/17/20 12:43 85 100 03/17/20 12:38 82 100 03/17/20 12:34 102 H 88 L 03/17/20 12:33 94 H 100 03/17/20 12:32 102 H 128/76 03/17/20 12:30 18 03/17/20 12:28 91 H 99 03/17/20 12:23 84 100 03/17/20 12:18 90 100 03/17/20 12:15 110 H 124/80 03/17/20 12:13 82 100 03/17/20 12:08 86 100 03/17/20 12:03 83 100 03/17/20 12:00 83 124/74 03/17/20 11:58 84 100 03/17/20 11:53 85 100 03/17/20 11:50 18 03/17/20 11:48 87 100 03/17/20 11:46 96 H 85 L 03/17/20 11:45 98 H 131/84 03/17/20 11:43 96 H 89 L 03/17/20 11:40 87 86 L 03/17/20 11:38 96 H 94 03/17/20 11:34 93 H 87 L 03/17/20 11:33 88 93 03/17/20 11:30 96 H 140/73 03/17/20 11:28 118 H 73 L 03/17/20 11:23 96 H 100 03/17/20 11:18 115 H 97 03/17/20 11:13 106 H 100 03/17/20 11:08 90 100 03/17/20 11:03 98 H 98 03/17/20 11:01 87 138/58 L 03/17/20 10:58 97 H 100 03/17/20 10:53 89 98 03/17/20 10:52 96 H 85 L 03/17/20 10:50 36.9 C 18 03/17/20 10:48 86 100 03/17/20 10:45 100 H 142/69 H 03/17/20 10:43 86 100 03/17/20 10:38 93 H 97 03/17/20 10:33 85 100 03/17/20 10:30 88 135/69 03/17/20 10:28 88 99 03/17/20 10:23 84 99 03/17/20 10:18 85 100 03/17/20 10:16 85 136/74 03/17/20 10:13 102 H 84 L 03/17/20 10:10 16 03/17/20 10:08 82 99 03/17/20 10:03 83 99 03/17/20 10:02 94 H 122/62 03/17/20 09:58 84 98 03/17/20 09:53 89 99 03/17/20 09:48 89 99 03/17/20 09:46 85 131/68 03/17/20 09:43 84 99 03/17/20 09:40 18 03/17/20 09:38 83 99 03/17/20 09:33 83 99 03/17/20 09:30 85 119/66 03/17/20 09:28 82 99 03/17/20 09:23 87 100 0702/20 09:18 81 99 03/17/20 09:15 90 114/63 03/17/20 09:13 84 100 03/17/20 09:08 85 100 03/17/20 09:03 90 88 L 03/17/20 09:02 86 84 L 03/17/20 09:00 87 18 113/64 03/17/20 08:58 90 99 03/17/20 08:55 87 88 L 03/17/20 08:53 97 H 98 03/17/20 08:48 86 100 03/17/20 08:46 95 H 128/59 L 03/17/20 08:43 94 H 98 03/17/20 08:38 92 H 100 03/17/20 08:37 36.9 C 18 03/17/20 08:36 97 H 77 L 03/17/20 08:33 89 100 03/17/20 08:30 81 18 131/76 03/17/20 08:28 84 100 03/17/20 08:23 84 100 03/17/20 08:18 80 98 03/17/20 08:15 77 133/74 03/17/20 08:13 82 99 03/17/20 08:08 103 H 99 03/17/20 08:06 114 H 83 L 03/17/20 08:03 100 H 100 03/17/20 08:00 90 129/71 03/17/20 07:58 97 H 97 03/17/20 07:53 85 99 03/17/20 07:48 85 99 03/17/20 07:45 98 H 128/70 03/17/20 07:43 93 H 100 03/17/20 07:40 105 H 88 L 03/17/20 07:38 105 H 91 03/17/20 07:33 102 H 97 03/17/20 07:30 18 03/17/20 07:28 115 H 98 03/17/20 07:23 98 H 98 03/17/20 07:18 36.9 C 109 H 18 98 03/17/20 07:15 102 H 125/67 03/17/20 07:13 88 100 03/17/20 07:08 101 H 99 03/17/20 07:03 95 H 100 03/17/20 07:01 88 127/71 03/17/20 06:58 94 H 100 03/17/20 06:53 101 H 99 03/17/20 06:48 101 H 99 03/17/20 06:45 101 H 118/69 03/17/20 06:43 108 H 99 03/17/20 06:38 108 H 98 03/17/20 06:36 109 H 88 L 03/17/20 06:33 95 H 100 03/17/20 06:32 97 H 134/82 03/17/20 06:27 92 H 100 03/17/20 06:22 98 H 100 03/17/20 06:17 99 H 100 03/17/20 06:15 36.9 C 85 18 112/57 L 03/17/20 06:12 84 100 03/17/20 06:07 91 H 100 03/17/20 06:02 91 H 108/50 L 100 03/17/20 06:01 83 82 L 03/17/20 05:57 103 H 97 03/17/20 05:52 82 99 03/17/20 05:47 81 100 03/17/20 05:45 86 128/71 03/17/20 05:42 83 100 03/17/20 05:37 83 100 03/17/20 05:32 98 H 100 03/17/20 05:31 79 130/73 03/17/20 05:27 78 99 03/17/20 05:22 79 98 03/17/20 05:17 88 125/71 100 03/17/20 05:15 97 H 125/77 03/17/20 05:12 82 98 03/17/20 05:07 82 99 03/17/20 05:02 95 H 100 03/17/20 05:01 84 126/76 03/17/20 05:00 16 03/17/20 04:57 79 98 03/17/20 04:52 80 99 03/17/20 04:47 88 99 03/17/20 04:46 80 128/73 03/17/20 04:42 83 99 03/17/20 04:37 79 98 03/17/20 04:32 83 98 03/17/20 04:31 78 120/68 03/17/20 04:27 79 98 03/17/20 04:22 88 100 03/17/20 04:17 89 98 03/17/20 04:15 86 116/70 03/17/20 04:12 81 98 03/17/20 04:07 80 98 03/17/20 04:04 37.0 C 18 03/17/20 04:02 82 98 03/17/20 04:01 85 118/71 03/17/20 03:57 86 99 03/17/20 03:52 79 99 03/17/20 03:47 84 100 03/17/20 03:46 80 114/55 L 03/17/20 03:42 88 100 03/17/20 03:37 88 100 03/17/20 03:33 99 H 88 L 03/17/20 03:32 107 H 100 03/17/20 03:31 91 H 129/79 03/17/20 03:27 105 H 95 03/17/20 03:24 20 03/17/20 03:22 105 H 99 03/17/20 03:18 107 H 86 L 03/17/20 03:17 103 H 100 03/17/20 03:16 101 H 110/70 03/17/20 03:12 84 100 03/17/20 03:10 102 H 87 L 03/17/20 03:07 95 H 100 03/17/20 03:02 89 100 03/17/20 03:01 89 110/60 03/17/20 02:57 99 H 99 03/17/20 02:52 76 100 03/17/20 02:47 82 99 03/17/20 02:46 85 106/65 03/17/20 02:42 91 H 99 03/17/20 02:37 86 100 03/17/20 02:32 85 100 03/17/20 02:31 85 113/67 03/17/20 02:29 88 82 L 03/17/20 02:27 88 100 03/17/20 02:22 105 H 100 03/17/20 02:17 103 H 92 03/17/20 02:16 36.7 C 03/17/20 02:15 86 122/77 03/17/20 02:12 82 100 03/17/20 02:07 78 100 03/17/20 02:02 77 100 03/17/20 02:00 84 124/80 03/17/20 01:57 84 100 03/17/20 01:52 84 100 Coding Level of Care Code None
--- NOTE | 2020-03-17 16:45 | Labor Progress Brief Note ---
Date of Service March 17, 2020 Subjective Feeling pressure and urge to push with ctx. FHT Cat 1 [place] q 2-3 completely dilated, +1 to +2 station Continue pushing. Assessment & Plan Admission and Anticipated Discharge Date Admission Date: March 16, 2020 Results & Data ([facility]) Vital Signs (Past 12 Hours) Vital Signs Temp Pulse Resp BP Pulse Ox 03/17/20 16:41 103 H 83 L 03/17/20 16:38 100 H 99 03/17/20 16:36 107 H 88 L 03/17/20 16:33 99 H 99 03/17/20 16:31 102 H 89 L 03/17/20 16:30 91 H 135/70 03/17/20 16:28 90 100 03/17/20 16:24 105 H 83 L 03/17/20 16:23 94 H 100 03/17/20 16:18 104 H 100 03/17/20 16:15 94 H 134/63 03/17/20 16:13 94 H 99 03/17/20 16:08 102 H 98 03/17/20 16:07 115 H 82 L 03/17/20 16:03 113 H 84 L 03/17/20 16:00 100 H 130/62 03/17/20 15:59 101 H 86 L 03/17/20 15:58 97 H 100 03/17/20 15:53 106 H 100 03/17/20 15:48 103 H 100 03/17/20 15:46 99 H 142/75 H 03/17/20 15:45 18 03/17/20 15:43 104 H 86 L 03/17/20 15:41 113 H 84 L 03/17/20 15:38 98 H 88 L 03/17/20 15:34 108 H 87 L 03/17/20 15:33 104 H 100 03/17/20 15:30 114 H 18 143/63 H 03/17/20 15:28 116 H 100 03/17/20 15:23 107 H 97 03/17/20 15:22 121 H 86 L 03/17/20 15:18 106 H 99 03/17/20 15:15 129 H 132/84 03/17/20 15:13 105 H 99 03/17/20 15:08 90 100 03/17/20 15:03 97 H 99 03/17/20 15:01 89 132/81 07 15:00 18 03/17/20 14:58 91 H 98 03/17/20 14:53 98 H 99 03/17/20 14:48 93 H 98 03/17/20 14:46 90 132/78 03/17/20 14:43 92 H 99 03/17/20 14:38 90 99 03/17/20 14:33 92 H 100 03/17/20 14:31 97 H 134/78 03/17/20 14:28 90 99 03/17/20 14:23 98 H 100 03/17/20 14:20 37.7 C H 18 03/17/20 14:18 96 H 99 03/17/20 14:16 96 H 124/79 03/17/20 14:13 96 H 99 03/17/20 14:08 95 H 99 03/17/20 14:03 95 H 100 03/17/20 14:00 104 H 133/73 03/17/20 13:58 98 H 100 03/17/20 13:57 106 H 83 L 03/17/20 13:53 108 H 98 03/17/20 13:52 112 H 83 L 03/17/20 13:49 38.1 C H 18 03/17/20 13:48 105 H 93 03/17/20 13:46 108 H 86 L 03/17/20 13:43 109 H 100 03/17/20 13:41 100 H 87 L 03/17/20 13:38 93 H 94 03/17/20 13:33 87 98 03/17/20 13:31 86 135/80 03/17/20 13:30 18 03/17/20 13:29 96 H 84 L 03/17/20 13:28 96 H 92 03/17/20 13:23 94 H 100 03/17/20 13:21 99 H 89 L 03/17/20 13:20 18 03/17/20 13:18 107 H 100 03/17/20 13:15 88 131/77 03/17/20 13:14 102 H 84 L 03/17/20 13:13 106 H 94 03/17/20 13:08 97 H 100 03/17/20 13:03 85 100 03/17/20 13:00 93 H 132/80 03/17/20 12:58 93 H 99 07/02/20 12:53 87 100 03/17/20 12:48 89 100 03/17/20 12:45 96 H 127/73 03/17/20 12:43 85 100 03/17/20 12:38 82 100 03/17/20 12:34 102 H 88 L 03/17/20 12:33 94 H 100 03/17/20 12:32 102 H 128/76 03/17/20 12:30 18 03/17/20 12:28 91 H 99 03/17/20 12:23 84 100 03/17/20 12:20 18 03/17/20 12:18 90 100 03/17/20 12:15 110 H 124/80 03/17/20 12:13 82 100 03/17/20 12:08 86 100 03/17/20 12:03 83 100 03/17/20 12:00 83 124/74 03/17/20 11:58 84 100 03/17/20 11:53 85 100 03/17/20 11:50 18 03/17/20 11:48 87 100 03/17/20 11:46 96 H 85 L 03/17/20 11:45 98 H 131/84 03/17/20 11:43 96 H 89 L 03/17/20 11:40 87 86 L 03/17/20 11:38 96 H 94 03/17/20 11:34 93 H 87 L 03/17/20 11:33 88 93 03/17/20 11:30 96 H 140/73 03/17/20 11:28 118 H 73 L 03/17/20 11:23 96 H 100 03/17/20 11:18 115 H 97 03/17/20 11:13 106 H 100 03/17/20 11:08 90 100 03/17/20 11:03 98 H 98 03/17/20 11:01 87 138/58 L 03/17/20 10:58 97 H 100 03/17/20 10:53 89 98 03/17/20 10:52 96 H 85 L 03/17/20 10:50 36.9 C 18 03/17/20 10:48 86 100 03/17/20 10:45 100 H 142/69 H 03/17/20 10:43 86 100 03/17/20 10:38 93 H 97 03/17/20 10:33 85 100 03/17/20 10:30 88 135/69 03/17/20 10:28 88 99 03/17/20 10:23 84 99 03/17/20 10:18 85 100 03/17/20 10:16 85 136/74 03/17/20 10:13 102 H 84 L 03/17/20 10:10 16 03/17/20 10:08 82 99 03/17/20 10:03 83 99 03/17/20 10:02 94 H 122/62 03/17/20 09:58 84 98 03/17/20 09:53 89 99 03/17/20 09:48 89 99 03/17/20 09:46 85 131/68 03/17/20 09:43 84 99 03/17/20 09:40 18 03/17/20 09:38 83 99 03/17/20 09:33 83 99 03/17/20 09:30 85 119/66 03/17/20 09:28 82 99 03/17/20 09:23 87 100 03/17/20 09:18 81 99 03/17/20 09:15 90 114/63 03/17/20 09:13 84 100 03/17/20 09:08 85 100 03/17/20 09:03 90 88 L 03/17/20 09:02 86 84 L 03/17/20 09:00 87 18 113/64 03/17/20 08:58 90 99 03/17/20 08:55 87 88 L 03/17/20 08:53 97 H 98 03/17/20 08:48 86 100 03/17/20 08:46 95 H 128/59 L 03/17/20 08:43 94 H 98 03/17/20 08:38 92 H 100 03/17/20 08:37 36.9 C 18 03/17/20 08:36 97 H 77 L 03/17/20 08:33 89 100 03/17/20 08:30 81 18 131/76 03/17/20 08:28 84 100 03/17/20 08:23 84 100 03/17/20 08:18 80 98 03/17/20 08:15 77 133/74 03/17/20 08:13 82 99 03/17/20 08:08 103 H 99 03/17/20 08:06 114 H 83 L 03/17/20 08:03 100 H 100 03/17/20 08:00 90 129/71 03/17/20 07:58 97 H 97 03/17/20 07:53 85 99 03/17/20 07:48 85 99 03/17/20 07:45 98 H 128/70 03/17/20 07:43 93 H 100 03/17/20 07:40 105 H 88 L 03/17/20 07:38 105 H 91 03/17/20 07:33 102 H 97 03/17/20 07:30 18 03/17/20 07:28 115 H 98 03/17/20 07:23 98 H 98 03/17/20 07:18 36.9 C 109 H 18 98 03/17/20 07:15 102 H 125/67 03/17/20 07:13 88 100 03/17/20 07:08 101 H 99 03/17/20 07:03 95 H 100 03/17/20 07:01 88 127/71 03/17/20 06:58 94 H 100 03/17/20 06:53 101 H 99 03/17/20 06:48 101 H 99 03/17/20 06:45 101 H 118/69 03/17/20 06:43 108 H 99 03/17/20 06:38 108 H 98 03/17/20 06:36 109 H 88 L 03/17/20 06:33 95 H 100 03/17/20 06:32 97 H 134/82 03/17/20 06:27 92 H 100 03/17/20 06:22 98 H 100 03/17/20 06:17 99 H 100 03/17/20 06:15 36.9 C 85 18 112/57 L 03/17/20 06:12 84 100 03/17/20 06:07 91 H 100 03/17/20 06:02 91 H 108/50 L 100 03/17/20 06:01 83 82 L 03/17/20 05:57 103 H 97 03/17/20 05:52 82 99 03/17/20 05:47 81 100 03/17/20 05:45 86 128/71 03/17/20 05:42 83 100 03/17/20 05:37 83 100 03/17/20 05:32 98 H 100 03/17/20 05:31 79 130/73 03/17/20 05:27 78 99 03/17/20 05:22 79 98 03/17/20 05:17 88 125/71 100 03/17/20 05:15 97 H 125/77 03/17/20 05:12 82 98 03/17/20 05:07 82 99 03/17/20 05:02 95 H 100 03/17/20 05:01 84 126/76 03/17/20 05:00 16 03/17/20 04:57 79 98 03/17/20 04:52 80 99 03/17/20 04:47 88 99 03/17/20 04:46 80 128/73 Coding Level of Care Code None
--- NOTE | 2020-03-17 18:23 | History & Physical Bridge Note ---
Date of Service March 17, 2020 History & Physical Bridge Note I have examined the patient, reviewed the History & Physical and in the interval since the performance of the History & Physical I have noted the following changes of clinical significance: no changes noted Patient has been pushing at this point for 3 hours. She has made some progress of the station, from 0 to +1 station, but has been unable to bring the baby's head down far enough for delivery. She is, at this point, stating "I am exhausted, I would like a ." I have counseled patient, reviewed risks/benefits/alternatives, and she is agreeable to proceed. Informed consent obtained. Will proceed to OR for section for failure to descend.
[2020-03-17] MEDS ORDERED: CITRIC ACID/SODIUM CITRATE 15 ML UDC ONE (18:39)
[2020-03-17] MEDS ORDERED: LACTATED RINGER'S 1,000 ML IV SCH ×2 (18:45→20:28)
[2020-03-17] MEDS ORDERED: NALOXONE HCL 1 MG in SODIUM CHLORIDE 0.9% 1000ML 1,000 ML IV PRN (18:54)
[2020-03-17] MEDS ORDERED: DiphenhydrAMINE HCL 50 MG/ML VIAL IV PRN ×2 (18:54→20:28)
[2020-03-17] MEDS ORDERED: PROMETHAZINE HCL 25 MG in SODIUM CHLORIDE 0.9% 50 ML IV PRN (18:54)
[2020-03-17] MEDS ORDERED: NALOXONE HCL 0.08 MG in SYRINGE 1.8 ML IV PRN (18:54)
[2020-03-17] MEDS ORDERED: ONDANSETRON INJ 2 MG/ML 2 ML VIAL IV PRN (18:54)
[2020-03-17] MEDS ORDERED: NALOXONE HCL 0.4 MG/1 ML VIAL/CARP IV PRN (18:54)
[2020-03-17] MEDS ORDERED: LACTATED RINGER'S 500 ML IV PRN (18:54)
[2020-03-17] MEDS ORDERED: MoRPHine SULFATE PF 1 MG/ML 10 ML AMP/VIAL EPI ONE (18:54)
[2020-03-17] MEDS ORDERED: HYDROmorphone INJ 0.5 MG/0.5 ML SYR IV PRN (18:54)
[2020-03-17] MEDS ORDERED: ePHEDrine sulfate 50 MG/ML AMP IV PRN (18:54)
[2020-03-17] MEDS ORDERED: OXYTOCIN 10 UNITS/ML VIAL ONE (18:56)
[2020-03-17] MEDS ORDERED: LIDOCAINE/EPINEPHRINE 2% 1:200,000 20 ML SDV ONE ×2 (18:56→19:10)
[2020-03-17] MEDS ORDERED: MoRPHine SULFATE PF 1 MG/ML 10 ML AMP/VIAL ONE (18:57)
[2020-03-17] MEDS ORDERED: NO NARCOTICS OR SEDATIVES SCH (19:00)
[2020-03-17] MEDS ORDERED: SODIUM CHLORIDE 0.9% 1000ML 1,000 ML IV SCH (19:00)
[2020-03-17] MEDS ORDERED: CEFAZOLIN 2000MG 2,000 MG/15 ML SYR IV SCH (19:00)
[2020-03-17] MEDS ORDERED: METHYLERGONOVINE MALEATE 0.2 MG/ML AMP ONE (19:26)
[2020-03-17] MEDS ORDERED: MEPERIDINE HCL 25 MG/ML CARP/VIAL ONE (19:36)
--- NOTE | 2020-03-17 20:23 | Operative Report ---
PG Post Operative Report Pre & Post Diagnosis Operation Date: 03/17/20 19:00 Pre-Op Diagnosis: Failure to descend Post-Op Diagnosis: Same as pre-op I identified the patient and participated in the time-out.: Yes Procedure Operation Date: 03/17/20 19:00 Actual Procedures p Primary Low transverse Section in - Gayle Roblero DO Surgeon Gayle Roblero DO Manager Case Management Merary Liu RN Estimated Blood Loss 500 Findings Consistent with Post-Op Diagnosis Normal appearing uterus, tubes, ovaries. Viable male , Apgars 8/9. Weight 9#5. Specimens placenta, cord blood Drains parkinson, clear yellow Anesthesia Type L&D Only Epidural Exists Complications none Disposition Accompanied Patient To Recovery: No Disposition: L&D Indications 24yo @ 40 3/, presented in labor, progressed to complete dilation. She pushed for 3 hours, unable to descend beyond 1 to 2+ station. Description of Procedure Patient was taken to the operating room, 2 g of Ancef were administered. Her labor epidural was redosed. Timeout was confirmed. She is prepared and draped in the usual sterile fashion in the supine position with a leftward tilt. Anesthesia was found to be adequate. A Pfannenstiel skin incision was made with a scalpel, and carried through to the underlying layer of fascia. Fascia was nicked at midline, and this incision was extended bilaterally bluntly. The superior aspect of the fascial incision was grasped with Coretta clamps x2, elevated off the underlying rectus abdominis muscles, and dissected bluntly and sharply. In a similar fashion, the inferior aspect of the incision incision was dissected. The rectus abdominis muscles were midline. The peritoneum was entered bluntly digitally. This incision was extended bilaterally. The bladder blade was placed. The bladder flap was taken down using Metzenbaum scissors and [place]'s. The bladder blade was replaced. A low transverse uterine incision was made with a new scalpel. This incision was extended by bilaterally bluntly. The was delivered from a cephalic presentation, no nuchal cord was noted. The anterior shoulder was delivered, followed by the posterior shoulder, followed by the body. Spontaneous cry was heard on the field. The cord was doubly clamped and cut, and the baby was handed off to the waiting strapper. A cord segment was obtained for cord gases. Cord blood was obtained. The placenta was delivered spontaneously and intact with a three-vessel cord. The uterus was exteriorized, and cleared of all clots and debris. The hysterotomy incision was reapproximated using 0 Vicryl in a running locked stitch. A second layer of the same suture was used to imbricate the incision. The uterus was still somewhat atonic, and the patient was given a dose of Methergine by anesthesia. Additionally, uterine massage was performed. The posterior uterus was found to be normal. The uterine tone improved significantly. The hysterotomy incision was evaluated and found to be hemostatic. The uterus was returned to the abdomen. Gutters were cleared of all clots and debris. Again, the hysterotomy incision appeared hemostatic. However, at the location where the bladder flap was taken down inferior to the incision, there was a small amount of oozing. Therefore, Elvin powder was used in that area and this obtained excellent hemostasis. The fascial incision was reapproximated using 0 Vicryl in a running stitch. The subcutaneous tissue was irrigated, and reapproximated using 2-0 plain gut in a running stitch. The skin was reapproximated using 4-0 Vicryl in a running subcuticular stitch. Steri-Strips and a bandage were applied. The patient tolerated the procedure well, and was taken to her room at labor and delivery for recovery in stable and good condition. I attest to the content of the Intraoperative Record and any orders documented therein. Any exceptions are noted below.
[2020-03-17] MEDS ORDERED: SUPERCREAM 0.870% 15 GM JAR EXT PRN (20:28)
[2020-03-17] MEDS ORDERED: SENNA 8.6 MG TAB PO PRN (20:28)
[2020-03-17] MEDS ORDERED: BENZOCAINE 20% AER SPR 82.5 GM CAN EXT PRN (20:28)
[2020-03-17] MEDS ORDERED: MAGNESIUM HYDROXIDE SUSP 30 ML UDC PO PRN (20:28)
[2020-03-17] MEDS ORDERED: HYDROCORTISONE ACETATE 25 MG SUPP PR PRN (20:28)
[2020-03-17] MEDS ORDERED: DIPHTHERIA/TETANUS/PERTUSSIS 0.5 ML SYR/VIAL IM ONE (20:28)
[2020-03-17] MEDS: OXYTOCIN 30 UNITS in LACTATED RINGER'S 1,000 ML IV SCH (20:44)
[2020-03-17 20:45] LABS: Base Excess Cord Arterial Bld 0.3 mEq/L (-9-1.8); CO2 Cord Arterial Blood 53 mmHg (39.1-73.5); HCO3 Cord Arterial Blood 27 mmol/L (19.7-28.5); PO2 Cord Arterial Blood 13 mmHg (4.1-31.7); pH Cord Arterial Blood 7.33 (7.1-7.38)
[2020-03-17 20:46] LABS: Base Excess Cord Venous Blood -0.1 mEq/L (-7.7-1.9); Cord Venous Blood HCO3 24 mmol/L (18.4-26.8); Cord Venous Blood PCO2 39 mmHg (30.4-57.2); Cord Venous Blood PO2 27 mmHg (14.1-43.3); Cord Venous Blood pH 7.42 (7.20-7.44); O2 Saturation Cord Venous Bld 63.2 % (<68)
[2020-03-17 20:47] LABS: Oxygen Sat Cord Arterial Blood < 60.0 % (<60)
--- NOTE | 2020-03-17 20:59 | Anesthesiology Progress Note ---
Date of Service March 17, 2020 Anesthesia Post Procedure Vital Signs Vital Signs: Temp Pulse Resp BP Pulse Ox 03/17/20 20:57 105 H 116/77 03/17/20 20:55 87 96 03/17/20 20:50 90 96 03/17/20 20:47 113 H 122/58 L 03/17/20 20:45 105 H 96 03/17/20 20:40 97 H 96 03/17/20 20:37 122 H 118/63 03/17/20 20:35 113 H 138/74 96 03/17/20 20:30 118 H 94 03/17/20 20:28 100 H 90 03/17/20 20:27 96 H 129/67 03/17/20 20:25 93 H 82 L 03/17/20 20:21 102 H 86 L 03/17/20 20:20 99 H 100 03/17/20 20:17 89 129/60 03/17/20 20:15 95 H 100 03/17/20 20:10 92 H 100 03/17/20 20:07 100 H 129/63 03/17/20 20:05 104 H 100 03/17/20 18:58 116 H 100 03/17/20 18:53 103 H 100 03/17/20 18:48 117 H 100 03/17/20 18:45 105 H 120/79 03/17/20 18:44 111 H 82 L 03/17/20 18:43 111 H 100 03/17/20 18:38 102 H 100 03/17/20 18:33 112 H 127/82 100 03/17/20 18:28 106 H 100 03/17/20 18:23 103 H 99 03/17/20 18:18 110 H 100 03/17/20 18:13 106 H 100 03/17/20 18:08 126 H 100 03/17/20 18:03 110 H 99 03/17/20 18:01 105 H 125/60 03/17/20 18:00 37.8 C H 18 03/17/20 17:58 108 H 71 L 03/17/20 17:57 102 H 124/71 03/17/20 17:53 109 H 99 03/17/20 17:50 109 H 80 L 03/17/20 17:48 105 H 100 03/17/20 17:45 100 H 79 L 03/17/20 17:43 97 H 100 03/17/20 17:38 94 H 100 03/17/20 17:33 97 H 100 03/17/20 17:31 90 127/68 03/17/20 17:30 102 H 18 85 L 03/17/20 17:28 91 H 100 03/17/20 17:24 18 03/17/20 17:23 98 H 85 L 03/17/20 17:18 103 H 100 03/17/20 17:17 116 H 85 L 03/17/20 17:13 95 H 99 03/17/20 17:08 99 H 91 03/17/20 17:04 104 H 86 L 03/17/20 17:03 106 H 100 03/17/20 17:02 115 H 101/56 L 03/17/20 16:58 109 H 98 03/17/20 16:53 101 H 98 03/17/20 16:48 94 H 99 03/17/20 16:45 105 H 129/62 03/17/20 16:43 97 H 100 03/17/20 16:41 103 H 83 L 03/17/20 16:38 100 H 99 03/17/20 16:36 107 H 88 L 03/17/20 16:33 99 H 99 03/17/20 16:31 102 H 89 L 03/17/20 16:30 91 H 135/70 03/17/20 16:28 90 100 03/17/20 16:24 105 H 83 L 03/17/20 16:23 94 H 100 03/17/20 16:18 104 H 100 03/17/20 16:15 94 H 134/63 03/17/20 16:13 94 H 99 03/17/20 16:08 102 H 98 03/17/20 16:07 115 H 82 L 03/17/20 16:03 113 H 84 L 03/17/20 16:00 100 H 130/62 03/17/20 15:59 101 H 86 L 03/17/20 15:58 97 H 100 03/17/20 15:53 106 H 100 03/17/20 15:48 103 H 100 03/17/20 15:46 99 H 142/75 H 03/17/20 15:45 18 03/17/20 15:43 104 H 86 L 03/17/20 15:41 113 H 84 L 03/17/20 15:38 98 H 88 L 03/17/20 15:34 108 H 87 L 03/17/20 15:33 104 H 100 03/17/20 15:30 114 H 18 143/63 H 03/17/20 15:28 116 H 100 03/17/20 15:23 107 H 97 03/17/20 15:22 121 H 86 L 03/17/20 15:18 106 H 99 03/17/20 15:15 129 H 132/84 03/17/20 15:13 105 H 99 03/17/20 15:08 90 100 03/17/20 15:03 97 H 99 03/17/20 15:01 89 132/81 03/17/20 15:00 18 03/17/20 14:58 91 H 98 03/17/20 14:53 98 H 99 03/17/20 14:48 93 H 98 03/17/20 14:46 90 132/78 03/17/20 14:43 92 H 99 03/17/20 14:38 90 99 03/17/20 14:33 92 H 100 03/17/20 14:31 97 H 134/78 03/17/20 14:28 90 99 03/17/20 14:23 98 H 100 03/17/20 14:20 37.7 C H 18 03/17/20 14:18 96 H 99 03/17/20 14:16 96 H 124/79 03/17/20 14:13 96 H 99 03/17/20 14:08 95 H 99 03/17/20 14:03 95 H 100 03/17/20 14:00 104 H 133/73 03/17/20 13:58 98 H 100 03/17/20 13:57 106 H 83 L 03/17/20 13:53 108 H 98 03/17/20 13:52 112 H 83 L 03/17/20 13:49 38.1 C H 18 03/17/20 13:48 105 H 93 03/17/20 13:46 108 H 86 L 03/17/20 13:43 109 H 100 03/17/20 13:41 100 H 87 L 03/17/20 13:38 93 H 94 03/17/20 13:33 87 98 03/17/20 13:31 86 135/80 0702/20 13:30 18 03/17/20 13:29 96 H 84 L 03/17/20 13:28 96 H 92 03/17/20 13:23 94 H 100 03/17/20 13:21 99 H 89 L 03/17/20 13:20 18 03/17/20 13:18 107 H 100 03/17/20 13:15 88 131/77 03/17/20 13:14 102 H 84 L 03/17/20 13:13 106 H 94 03/17/20 13:08 97 H 100 03/17/20 13:03 85 100 03/17/20 13:00 93 H 132/80 03/17/20 12:58 93 H 99 03/17/20 12:53 87 100 03/17/20 12:48 89 100 03/17/20 12:45 96 H 127/73 03/17/20 12:43 85 100 03/17/20 12:38 82 100 03/17/20 12:34 102 H 88 L 03/17/20 12:33 94 H 100 03/17/20 12:32 102 H 128/76 03/17/20 12:30 18 03/17/20 12:28 91 H 99 03/17/20 12:23 84 100 03/17/20 12:20 18 03/17/20 12:18 90 100 03/17/20 12:15 110 H 124/80 03/17/20 12:13 82 100 03/17/20 12:08 86 100 03/17/20 12:03 83 100 03/17/20 12:00 83 124/74 03/17/20 11:58 84 100 03/17/20 11:53 85 100 03/17/20 11:50 18 03/17/20 11:48 87 100 03/17/20 11:46 96 H 85 L 03/17/20 11:45 98 H 131/84 03/17/20 11:43 96 H 89 L 03/17/20 11:40 87 86 L 03/17/20 11:38 96 H 94 03/17/20 11:34 93 H 87 L 03/17/20 11:33 88 93 03/17/20 11:30 96 H 140/73 03/17/20 11:28 118 H 73 L 03/17/20 11:23 96 H 100 03/17/20 11:18 115 H 97 03/17/20 11:13 106 H 100 03/17/20 11:08 90 100 03/17/20 11:03 98 H 98 03/17/20 11:01 87 138/58 L 03/17/20 10:58 97 H 100 03/17/20 10:53 89 98 03/17/20 10:52 96 H 85 L 03/17/20 10:50 36.9 C 18 03/17/20 10:48 86 100 03/17/20 10:45 100 H 142/69 H 03/17/20 10:43 86 100 03/17/20 10:38 93 H 97 03/17/20 10:33 85 100 03/17/20 10:30 88 135/69 03/17/20 10:28 88 99 03/17/20 10:23 84 99 03/17/20 10:18 85 100 03/17/20 10:16 85 136/74 03/17/20 10:13 102 H 84 L 03/17/20 10:10 16 03/17/20 10:08 82 99 03/17/20 10:03 83 99 03/17/20 10:02 94 H 122/62 03/17/20 09:58 84 98 03/17/20 09:53 89 99 03/17/20 09:48 89 99 03/17/20 09:46 85 131/68 03/17/20 09:43 84 99 03/17/20 09:40 18 03/17/20 09:38 83 99 03/17/20 09:33 83 99 03/17/20 09:30 85 119/66 03/17/20 09:28 82 99 03/17/20 09:23 87 100 03/17/20 09:18 81 99 03/17/20 09:15 90 114/63 03/17/20 09:13 84 100 03/17/20 09:08 85 100 03/17/20 09:03 90 88 L 03/17/20 09:02 86 84 L 03/17/20 09:00 87 18 113/64 03/17/20 08:58 90 99 03/17/20 08:55 87 88 L 03/17/20 08:53 97 H 98 03/17/20 08:48 86 100 07/02/20 08:46 95 H 128/59 L 03/17/20 08:43 94 H 98 03/17/20 08:38 92 H 100 03/17/20 08:37 36.9 C 18 03/17/20 08:36 97 H 77 L 03/17/20 08:33 89 100 03/17/20 08:30 81 18 131/76 03/17/20 08:28 84 100 03/17/20 08:23 84 100 03/17/20 08:18 80 98 03/17/20 08:15 77 133/74 03/17/20 08:13 82 99 03/17/20 08:08 103 H 99 03/17/20 08:06 114 H 83 L 03/17/20 08:03 100 H 100 03/17/20 08:00 90 129/71 03/17/20 07:58 97 H 97 03/17/20 07:53 85 99 03/17/20 07:48 85 99 03/17/20 07:45 98 H 128/70 03/17/20 07:43 93 H 100 03/17/20 07:40 105 H 88 L 03/17/20 07:38 105 H 91 03/17/20 07:33 102 H 97 03/17/20 07:30 18 03/17/20 07:28 115 H 98 03/17/20 07:23 98 H 98 03/17/20 07:18 36.9 C 109 H 18 98 03/17/20 07:15 102 H 125/67 03/17/20 07:13 88 100 03/17/20 07:08 101 H 99 03/17/20 07:03 95 H 100 03/17/20 07:01 88 127/71 03/17/20 06:58 94 H 100 03/17/20 06:53 101 H 99 03/17/20 06:48 101 H 99 03/17/20 06:45 101 H 118/69 03/17/20 06:43 108 H 99 03/17/20 06:38 108 H 98 03/17/20 06:36 109 H 88 L 03/17/20 06:33 95 H 100 03/17/20 06:32 97 H 134/82 03/17/20 06:27 92 H 100 03/17/20 06:22 98 H 100 07/02/20 06:17 99 H 100 03/17/20 06:15 36.9 C 85 18 112/57 L 03/17/20 06:12 84 100 03/17/20 06:07 91 H 100 03/17/20 06:02 91 H 108/50 L 100 03/17/20 06:01 83 82 L 03/17/20 05:57 103 H 97 03/17/20 05:52 82 99 03/17/20 05:47 81 100 03/17/20 05:45 86 128/71 03/17/20 05:42 83 100 03/17/20 05:37 83 100 03/17/20 05:32 98 H 100 03/17/20 05:31 79 130/73 03/17/20 05:27 78 99 03/17/20 05:22 79 98 03/17/20 05:17 88 125/71 100 03/17/20 05:15 97 H 125/77 03/17/20 05:12 82 98 03/17/20 05:07 82 99 03/17/20 05:02 95 H 100 03/17/20 05:01 84 126/76 03/17/20 05:00 16 03/17/20 04:57 79 98 03/17/20 04:52 80 99 03/17/20 04:47 88 99 03/17/20 04:46 80 128/73 03/17/20 04:42 83 99 03/17/20 04:37 79 98 03/17/20 04:32 83 98 03/17/20 04:31 78 120/68 03/17/20 04:27 79 98 03/17/20 04:22 88 100 03/17/20 04:17 89 98 03/17/20 04:15 86 116/70 03/17/20 04:12 81 98 03/17/20 04:07 80 98 03/17/20 04:04 37.0 C 18 03/17/20 04:02 82 98 03/17/20 04:01 85 118/71 03/17/20 03:57 86 99 03/17/20 03:52 79 99 03/17/20 03:47 84 100 03/17/20 03:46 80 114/55 L 03/17/20 03:42 88 100 03/17/20 03:37 88 100 03/17/20 03:33 99 H 88 L 03/17/20 03:32 107 H 100 03/17/20 03:31 91 H 129/79 03/17/20 03:27 105 H 95 03/17/20 03:24 20 03/17/20 03:22 105 H 99 03/17/20 03:18 107 H 86 L 03/17/20 03:17 103 H 100 03/17/20 03:16 101 H 110/70 03/17/20 03:12 84 100 03/17/20 03:10 102 H 87 L 03/17/20 03:07 95 H 100 03/17/20 03:02 89 100 03/17/20 03:01 89 110/60 03/17/20 02:57 99 H 99 03/17/20 02:52 76 100 03/17/20 02:47 82 99 03/17/20 02:46 85 106/65 03/17/20 02:42 91 H 99 03/17/20 02:37 86 100 03/17/20 02:32 85 100 03/17/20 02:31 85 113/67 03/17/20 02:29 88 82 L 03/17/20 02:27 88 100 03/17/20 02:22 105 H 100 03/17/20 02:17 103 H 92 03/17/20 02:16 36.7 C 03/17/20 02:15 86 122/77 03/17/20 02:12 82 100 03/17/20 02:07 78 100 03/17/20 02:02 77 100 03/17/20 02:00 84 124/80 03/17/20 01:57 84 100 03/17/20 01:52 84 100 03/17/20 01:47 84 118/68 100 03/17/20 01:41 87 100 03/17/20 01:36 85 100 03/17/20 01:32 85 88 L 03/17/20 01:31 84 91 02 01:30 73 100/58 L 03/17/20 01:26 76 91 03/17/20 01:21 69 100 03/17/20 01:16 74 100 03/17/20 01:15 77 98/56 L 03/17/20 01:11 75 100 03/17/20 01:06 72 100 03/17/20 01:01 76 104/52 L 100 03/17/20 01:00 36.7 C 82 18 75 L 03/17/20 00:56 77 100 03/17/20 00:51 76 99 03/17/20 00:46 72 100 03/17/20 00:45 72 105/59 L 03/17/20 00:41 78 99 03/17/20 00:36 77 100 03/17/20 00:31 70 100/55 L 100 03/17/20 00:26 75 100 03/17/20 00:21 73 100 03/17/20 00:17 71 103/55 L 03/17/20 00:16 79 97 03/17/20 00:12 88 20 90 03/17/20 00:11 88 94 03/17/20 00:06 80 100 03/17/20 00:01 78 120/65 100 03/17/20 00:00 82 93 03/16/20 23:56 79 100 03/16/20 23:51 84 100 03/16/20 23:46 83 100 03/16/20 23:45 81 120/67 03/16/20 23:41 88 100 03/16/20 23:36 81 100 03/16/20 23:31 84 119/66 100 03/16/20 23:26 77 100 03/16/20 23:21 82 100 03/16/20 23:16 81 106/50 L 100 03/16/20 23:11 88 100 03/16/20 23:07 36.9 C 18 03/16/20 23:06 88 100 03/16/20 23:01 96 H 100 03/16/20 22:56 86 100 03/16/20 22:51 89 98 03/16/20 22:46 86 121/65 100 03/16/20 22:41 86 92 03/16/20 22:36 93 H 100 03/16/20 22:32 88 122/74 03/16/20 22:31 96 H 100 03/16/20 22:30 115 H 90 03/16/20 22:26 80 100 03/16/20 22:21 72 99 03/16/20 22:16 75 99 03/16/20 22:15 76 118/69 03/16/20 22:11 78 99 03/16/20 22:06 71 100 03/16/20 22:01 76 100 03/16/20 22:00 71 16 119/70 03/16/20 21:56 76 100 03/16/20 21:51 73 100 03/16/20 21:46 69 100 03/16/20 21:45 71 120/72 03/16/20 21:41 73 100 03/16/20 21:36 73 100 03/16/20 21:34 75 91 03/16/20 21:31 82 100 03/16/20 21:30 76 114/72 03/16/20 21:26 71 100 03/16/20 21:21 74 100 03/16/20 21:17 67 117/73 03/16/20 21:16 69 99 03/16/20 21:11 73 99 03/16/20 21:06 83 100 03/16/20 21:01 68 114/62 99 Pain Intensity Abdomen: Pain Intensity: 3 Transfer of Care Handoff Completed per policy Notes Mental Status: alert / awake / arousable Patient Amnestic to Procedure: Yes Nausea / Vomiting: adequately controlled Pain: adequately controlled Airway Patency, RR, SpO2: stable & adequate BP & HR: stable & adequate Hydration State: stable & adequate Neuraxial Anesthesia: was administered and sensory block is resolving Anesthetic Complications: no major complications apparent and Pt Satisfied with anesthetic care
[2020-03-18] MEDS: KETOROLAC 30 MG/ML VIAL IV PRN ×2 (04:11→10:59)
[2020-03-18] MEDS: SIMETHICONE 80 MG CHEW PO SCH ×5 (04:54→20:07)
[2020-03-18] MEDS: DOCUSATE SODIUM 100 MG CAP PO SCH ×2 (04:54→20:06)
[2020-03-18] MEDS: OXYTOCIN 30 UNITS in LACTATED RINGER'S 1,000 ML IV SCH (05:40)
[2020-03-18] MEDS ORDERED: CITRIC ACID/SODIUM CITRATE 15 ML UDC PO SCH (06:00)
--- NOTE | 2020-03-18 06:24 | Obstetrical Progress Note ---
Date of Service March 18, 2020 Assessment & Plan (1) H/O section: POD#1 doing well. Later today, will remove parkinson and begin ambulating. Patient is tolerating small amounts of solid foods and is drinking. She has passed gas. Encouraged PO hydration and advance diet as tolerated. Subjective Ambulation: ambulating normally Voiding: parkinson catheter in place Diet Tolerance:: regular diet Lochia:: Moderate Feeding Type:: breast feeding POD#1 doing well. Review of Systems All systems reviewed & are unremarkable except as noted in HPI & below Physical Exam Incision: bandaged, <24h from surgery, bandage is clean. Constitutional WD/WN, vitals as above no acute distress Respiratory normal respiratory effort Cardiovascular Rate/Rhythm: regular rate and regular rhythm Gastrointestinal (Abdomen) Inspection/Auscultation: abdomen normal to inspection; abdomen not distended Percussion/Palpation: abdomen soft Genitourinary OB Exam Abdomen: + fundal height Fundus: + firm; not tender Results & Data ([facility]) Vital Signs (Past 12 Hours) Vital Signs Temp Pulse Pulse Resp BP BP Pulse Ox 03/18/20 05:40 16 100 03/18/20 05:15 37.1 C 89 16 115/65 100 03/18/20 04:15 18 98 03/18/20 03:35 16 96 03/18/20 02:30 18 96 03/18/20 01:15 37.1 C 90 16 107/69 98 03/18/20 00:05 18 98 03/17/20 23:00 36.9 C 87 16 114/65 100 03/17/20 22:26 89 97 03/17/20 22:25 89 114/65 03/17/20 22:23 86 94 03/17/20 22:21 100 H 98 03/17/20 22:16 94 H 96 03/17/20 22:11 82 97 03/17/20 22:10 18 03/17/20 22:08 78 122/67 03/17/20 22:06 87 97 03/17/20 22:01 80 98 03/17/20 21:56 88 98 03/17/20 21:51 96 H 98 03/17/20 21:48 99 H 133/72 03/17/20 21:46 111 H 96 03/17/20 21:41 105 H 97 03/17/20 21:40 36.9 C 18 03/17/20 21:36 122 H 96 20 21:31 111 H 97 03/17/20 21:26 107 H 97 03/17/20 21:21 123 H 98 03/17/20 21:16 115 H 98 03/17/20 21:11 120 H 96 03/17/20 21:10 18 03/17/20 21:07 131 H 138/51 L 03/17/20 21:06 121 H 94 03/17/20 21:05 123 H 94 03/17/20 21:00 132 H 95 03/17/20 20:57 105 H 116/77 03/17/20 20:55 87 96 03/17/20 20:50 90 96 03/17/20 20:47 113 H 122/58 L 03/17/20 20:45 105 H 96 03/17/20 20:40 97 H 96 03/17/20 20:37 122 H 118/63 20 20:35 113 H 138/74 96 03/17/20 20:30 118 H 94 03/17/20 20:28 100 H 90 02 20:27 96 H 129/67 0720 20:25 93 H 82 L 03/17/20 20:21 102 H 86 L 20 20:20 99 H 18 100 0220 20:17 89 129/60 0220 20:15 95 H 100 0220 20:10 36.9 C 92 H 90 16 129/63 100 070220 20:07 100 H 129/63 20 20:05 104 H 100 070220 18:58 116 H 100 0220 18:53 103 H 100 07/0220 18:48 117 H 100 070220 18:45 105 H 120/79 070220 18:44 111 H 82 L 070220 18:43 111 H 100 07/0220 18:38 102 H 100 0220 18:33 112 H 127/82 100 07/0220 18:28 106 H 100 0220 18:23 103 H 99
[2020-03-18 07:05] LABS: Eosinophils # (auto) 0.08 K/uL (0-0.5); Eosinophils % (auto) 0.7 %; Hematocrit (blood only) 27.6 % (37-47); Hemoglobin 9.2 g/dL (12.0-16.0); Immature Granulocytes # (auto) 0.04 K/uL (0.00-0.02); Immature Granulocytes % (auto) 0.3 %; Lymphocytes # (auto) 1.85 K/uL (1.2-3.4); Lymphocytes % (auto) 15.4 %; Mean Corpuscular Hemoglobin 28.8 pg (25-34); Mean Corpuscular Hgb Conc 33.3 g/dL (32-36); Mean Corpuscular Volume 86.3 fL (80-100); Mean Platelet Volume 10.3 fL (7.4-10.4); Monocytes # (auto) 1.02 K/uL (0.11-0.59); Monocytes % (auto) 8.5 %; Neutrophils # (auto) 9.06 K/uL (1.4-6.5); Neutrophils % (auto) 75.1 %; Platelet Count 271 K/uL (130-400); RDW Coefficient of Variation 14.4 % (11.5-14.5); RDW Standard Deviation 45.1 fL (36.4-46.3); White Blood Count 12.05 K/uL (4.8-10.8)
[2020-03-18] MEDS: PRENATAL VITAMIN 1 TAB PO SCH (11:35)
[2020-03-18] MEDS: FERROUS SULFATE 325 MG TAB PO SCH (11:35)
[2020-03-18] MEDS ORDERED: DC INTRASPINAL MORPHINE ONE (12:54)
[2020-03-18] MEDS ORDERED: KETOROLAC 30 MG/ML VIAL IV PRN (13:00)
[2020-03-18] MEDS ORDERED: PROMETHAZINE HCL 25 MG in SODIUM CHLORIDE 0.9% 50 ML IV PRN (13:00)
[2020-03-18] MEDS ORDERED: ONDANSETRON INJ 2 MG/ML 2 ML VIAL IV PRN (13:00)
[2020-03-18] MEDS: OXYCODONE/ACETAMINOPHEN 5mg/325mg TAB PO PRN ×2 (13:33→21:20)
[2020-03-18] MEDS ORDERED: bisacodyL 5 MG TABEC PO SCH (20:00)
[2020-03-18] MEDS: IBUPROFEN 600 MG TAB PO PRN (21:20)
[2020-03-19 06:36] LABS: Hematocrit (blood only) 25.7 % (37-47); Hemoglobin 8.4 g/dL (12.0-16.0)
--- NOTE | 2020-03-19 07:12 | Obstetrical Progress Note ---
Date of Service March 19, 2020 Assessment & Plan (1) H/O section: Doing well Pain consistent with postop. Encourage ambulation. suspect distention will improved today as moving bowels, encourage ambulation. routine care. Day #:: 2 Subjective Ambulation: ambulating normally Voiding: no voiding problems Passing Gas:: Yes (had bm) Diet Tolerance:: regular diet Lochia:: Small Feeding Type:: breast feeding (notes blister on right nipple,painful) Physical Exam Constitutional WD/WN, vitals as above Cardiovascular Extremities: no calf tenderness and no edema Gastrointestinal (Abdomen) slightly distended, soft, appropriately tender incision c/d/i ff/appropriately tender at u Results & Data ([facility]) Vital Signs (Past 12 Hours) Vital Signs Temp Pulse Resp BP 03/19/20 00:25 37.1 C 121 H 18 119/72 03/18/20 20:07 37.2 C 114 H 18 135/74
[2020-03-19] MEDS: FERROUS SULFATE 325 MG TAB PO SCH (08:24)
[2020-03-19] MEDS: PRENATAL VITAMIN 1 TAB PO SCH (08:24)
[2020-03-19] MEDS: IBUPROFEN 600 MG TAB PO PRN ×3 (08:24→20:58)
[2020-03-19] MEDS: DOCUSATE SODIUM 100 MG CAP PO SCH ×2 (08:24→20:58)
[2020-03-19] MEDS: OXYCODONE/ACETAMINOPHEN 5mg/325mg TAB PO PRN ×3 (08:25→20:58)
[2020-03-19 17:15] VITALS: O2SAT 98
[2020-03-19] MEDS ORDERED: bisacodyL 10 MG SUPP PR PRN (20:13)
[2020-03-19] MEDS: SIMETHICONE 80 MG CHEW PO SCH (20:58)
[2020-03-20] MEDS: OXYCODONE/ACETAMINOPHEN 5mg/325mg TAB PO PRN ×3 (03:49→12:49)
[2020-03-20] MEDS: IBUPROFEN 600 MG TAB PO PRN ×3 (03:49→12:49)
[2020-03-20] MEDS: SIMETHICONE 80 MG CHEW PO SCH ×4 (07:30→12:50)
[2020-03-20] MEDS: DOCUSATE SODIUM 100 MG CAP PO SCH ×2 (07:31→07:34)
[2020-03-20] MEDS: PRENATAL VITAMIN 1 TAB PO SCH (07:34)
[2020-03-20] MEDS: FERROUS SULFATE 325 MG TAB PO SCH (07:34)
[2020-03-20 07:38] VITALS: TEMP 98.6
--- NOTE | 2020-03-20 07:42 | Obstetrical Progress Note ---
Date of Service March 20, 2020 Assessment & Plan (1) H/O section: Meets discharge criteria I reviewed taking iron supplement as she is mildly anemic discharge instructions reviewed Subjective Ambulation: ambulating normally Voiding: no voiding problems Passing Gas:: Yes Diet Tolerance:: regular diet Lochia:: Small Current Pain Level(1-10): 1 Physical Exam Constitutional WD/WN, vitals as above Respiratory normal respiratory effort, lungs clear to auscultation Cardiovascular RRR, no murmur, no edema Gastrointestinal (Abdomen) normal bowel sounds, soft, nontender, no hepatosplenomegaly (Incision is clean dry and intact) Results & Data ([facility]) Vital Signs (Past 12 Hours) Vital Signs Temp Pulse Resp BP Pulse Ox 03/20/20 07:36 98.6 F 80 18 108/67 03/20/20 00:00 98.4 F 99 H 20 117/63 98 03/19/20 20:10 98.4 F 91 H 20 123/76 98
[2020-03-20 12:13] VITALS: BP 119/72; PULSE 121
--- NOTE | 2020-03-28 08:41 | Discharge Summary ---
Date of Service March 28, 2020 Admission HPI Per Admitting Provider The patient is a 24-year-old 2 para 0 with an EDC of 14 March, at 40+ weeks gestational age who presents for evaluation of contractions. Patient states that she has been having contractions for the last 12 hours which increased in intensity. She denied rupture of membranes or vaginal bleeding. Patient was watched on labor and delivery for 4 hours and had cervical change and has been admitted. Patient's course was remarkable for late gestational care. Her new OB visit was at 18 weeks gestational age. Patient has a documented history of hypothyroidism with TSH is greater than 3. The patient has declined endocrinology or therapy for the hypothyroidism throughout the . Patient was made aware repeatedly of the risks associated with untreated hypothyroidism in . Laboratory values for show blood type of O+, antibody negative, rubella immune, hepatitis B negative, she had a negative cell free DNA screen, she had a normal 1 hour Glucola x2, and a positive third trimester beta strep culture. Discharge Data Consultations 03/16/20 14:00 Consult Anesthesiology Stat Procedures Performed Operation Date: 03/17/20 19:00 Actual Procedures p Section in - Gayle Roblero DO Hospital Course (1) H/O section: See admitting note for details of admission. Underwent section f or delivery. Discharged home Post op day 3. Coding Level of Care Code None Diagnoses H/O section Z98.891
== END 2020-03-20 13:00 | disposition home or self-care (01) | DRG 788 ==
LOC: OPB 09:49 → 4S1 09:53 → 4S2 03-17 22:20
DX: O48.0 Post-term pregnancy; Z37.0 Single live birth; O32.4XX0 Maternal care for high head at term, not applicable or unspecified; Z3A.40 40 weeks gestation of pregnancy

== ENCOUNTER 2022-04-26 08:48 | Inpatient (IN) ==
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
[~2022-04-26 08:48] MED LIST changes: -ALBUAER2 INH; +CITRIC ACID/SODIUM CITRATE 15 ML UDC PO SCH; -FLUT110A INH; +LACTATED RINGER'S 1,000 ML IV SCH; -LEVO88TA PO; +ceFAZolin 2,000 MG in SYRINGE 0 ML IV SCH
[2022-04-26] MEDS ORDERED: ONDANSETRON INJ 2 MG/ML 2 ML VIAL ONE (10:58)
[2022-04-26] MEDS ORDERED: OXYTOCIN 10 UNITS/ML 10ML VIAL ONE (10:59)
[2022-04-26] MEDS ORDERED: KETOROLAC 30 MG/ML VIAL ONE (10:59)
[2022-04-26] MEDS ORDERED: MoRPHine SULFATE PF 1 MG/ML 10 ML AMP/VIAL ONE (10:59)
[2022-04-26] MEDS ORDERED: fentaNYL citrate 100 MCG/2 ML VIAL ONE (10:59)
--- NOTE | 2022-04-26 11:28 | History & Physical Bridge Note ---
Date of Service April 26, 2022 History & Physical Bridge Note I have examined the patient, reviewed the History & Physical and in the interval since the performance of the History & Physical I have noted the following changes of clinical significance: no changes noted. Cervix rechecked, unchanged since yesterday's exam in office. Patient feels ready for and is at peace with this.
[2022-04-26 11:34] LABS: Basophils # (auto) 0.03 K/uL (0-0.2); Basophils % (auto) 0.3 %; Eosinophils # (auto) 0.02 K/uL (0-0.50); Eosinophils % (auto) 0.2 %; Hematocrit (blood only) 29.9 % (34.1-44.9); Hemoglobin 9.4 g/dl (12.0-16.0); Immature Granulocytes # (auto) 0.06 K/uL (0.00-0.02); Immature Granulocytes % (auto) 0.5 %; Lymphocytes # (auto) 2.77 K/uL (1.2-3.4); Lymphocytes % (auto) 24.8 %; Mean Corpuscular Hemoglobin 25.6 pg (25.0-34.0); Mean Corpuscular Hgb Conc 31.4 g/dL (32.0-36.0); Mean Corpuscular Volume 81.5 fL (80.0-100.0); Mean Platelet Volume 10.7 fL (9.4-12.3); Monocytes # (auto) 0.79 K/uL (0.24-0.82); Monocytes % (auto) 7.1 %; Neutrophils # (auto) 7.48 K/uL (1.4-6.5); Neutrophils % (auto) 67.1 %; Platelet Count 371 K/uL (130-400); RDW Standard Deviation 44.3 fL (36.4-46.3); Red Blood Count 3.67 M/uL (3.93-5.22); White Blood Count 11.15 K/ul (4.8-10.8)
[2022-04-26] MEDS ORDERED: LACTATED RINGER'S 500 ML IV PRN (12:27)
[2022-04-26] MEDS ORDERED: ePHEDrine sulfate 50 MG/ML AMP IV PRN (12:27)
[2022-04-26] MEDS ORDERED: NALOXONE HCL 0.4 MG/1 ML VIAL/CARP IV PRN (12:27)
[2022-04-26] MEDS ORDERED: ONDANSETRON INJ 2 MG/ML 2 ML VIAL IV PRN ×2 (12:27→16:48)
[2022-04-26] MEDS ORDERED: PROMETHAZINE HCL 12.5 MG in SODIUM CHLORIDE 0.9% 50 ML IV PRN (12:27)
[2022-04-26] MEDS ORDERED: diphenhydrAMINE 50 MG/ML VIAL IV PRN ×2 (12:27→16:48)
[2022-04-26] MEDS ORDERED: NALOXONE HCL 0.08 MG in SYRINGE 1.8 ML IV PRN (12:27)
[2022-04-26] MEDS ORDERED: NALBUPHINE HCL INJ 10 MG/ML AMP IV PRN (12:27)
[2022-04-26] MEDS ORDERED: NALOXONE HCL 1 MG in SODIUM CHLORIDE 0.9% 1000ML 1,000 ML IV PRN (12:27)
[2022-04-26] MEDS ORDERED: MoRPHine SULFATE PF 1 MG/ML 10 ML AMP/VIAL INT SPINAL ONE (12:27)
[2022-04-26] MEDS ORDERED: ACETAMINOPHEN 325 MG TAB PO PRN (12:27)
[2022-04-26] MEDS ORDERED: NO NARCOTICS OR SEDATIVES SCH (12:30)
[2022-04-26] MEDS ORDERED: SODIUM CHLORIDE 0.9% 1000ML 1,000 ML IV SCH (12:30)
[2022-04-26 14:49] LABS: Base Excess Cord Arterial Bld 3.4 mEq/L (-9-1.8); CO2 Cord Arterial Blood 50 mmHg (39.1-73.5); HCO3 Cord Arterial Blood 30 mmol/L (19.7-28.5); Oxygen Sat Cord Arterial Blood < 60.0 % (<60); PO2 Cord Arterial Blood 11 mmHg (4.1-31.7); pH Cord Arterial Blood 7.38 (7.1-7.38)
[2022-04-26 14:50] LABS: Base Excess Cord Venous Blood 1.5 mEq/L (-7.7-1.9); Cord Venous Blood HCO3 26 mmol/L (18.4-26.8); Cord Venous Blood PCO2 39 mmHg (30.4-57.2); Cord Venous Blood PO2 25 mmHg (14.1-43.3); Cord Venous Blood pH 7.43 (7.20-7.44); O2 Saturation Cord Venous Bld < 60.0 % (<68)
--- NOTE | 2022-04-26 15:07 | Operative Report ---
PG Post Operative Report Pre & Post Diagnosis Operation Date: 04/26/22 10:45 Pre-Op Diagnosis: History of Section, not favorable for /induction, desire for repeat Post-Op Diagnosis: same I identified the patient and participated in the time-out.: Yes Procedure Operation Date: 04/26/22 10:45 Repeat low transverse section for delivery of a viable male Surgeon Gayle Roblero DO Pension Fund Manager Jeffry Grewal DO PGY1, H Min [facility]RI[facility]ENS[facility] Estimated Blood Loss 600 Findings Consistent with Post-Op Diagnosis Viable male , Apgars 8/8. Weight Normal appearing uterus, tubes, ovaries. Specimens Placenta, cord blood, cord gas Drains parkinson clear yellow Anesthesia Type Spinal Complications none Disposition Accompanied Patient To Recovery: No Disposition: L&D Indications 26yo @ 40 3, h/o x 1 for failure to descend. Had hoped to , however by post-dates was still not laboring with unfavorable cervix and baby not engaged in the pelvis. She agreed for repeat . Description of Procedure The patient was seen in her labor and delivery room, risks benefits and alternatives to surgery were reviewed. Informed consent obtained. Questions were answered. She was taken to the operating room, spinal anesthesia was administered. She was then prepared and draped in the usual sterile fashion in the supine position with a leftward tilt. Timeout was confirmed. A Pfannenstiel skin incision was made with a scalpel, and carried through to the underlying layer of fascia. Fascia was nicked at midline, and this incision was extended bilaterally. The superior aspect of the fascial incision was grasped with Merry clamps x2, elevated off the underlying rectus abdominis muscles, and dissected sharply and bluntly. In similar fashion, the inferior aspect of the fascial incision was dissected. The rectus abdominis muscles were , and the peritoneum was entered bluntly digitally. This was extended bilaterally. The bladder flap was taken down carefully using Metzenbaum scissors. Using a new scalpel, a low transverse uterine incision was created. Clear amniotic fluid noted. The infant was delivered from a cephalic presentation. The head delivered, followed by shoulders and body. Spontaneous cry on the field. The cord was doubly clamped and cut, and the infant was handed off to the waiting supervisor in circuit testing. A segment was retained for cord gases. Cord blood was obtained. The placenta was delivered spontaneously intact. The uterus was exteriorized, and cleared of all clots and debris. The hysterotomy incision was reapproximated using 0 Vicryl in a running locked stitch. A second layer of the same suture was used to imbricate the incision. Posterior uterus was evaluated and normal. The uterus was returned to the abdomen, and gutters were cleared of clots and debris. Excellent hemostasis was observed. The fascial incision was reapproximated using 0 Vicryl in a running stitch. The subcutaneous tissue was irrigated, and reapproximated using 2-0 plain gut in a running stitch. The skin was reapproximated using 4-0 Vicryl in a running subcuticular stitch. Steri-Strips and a bandage were applied. The patient tolerated the procedure well, and will be taken to the recovery area in stable and good condition. Sponge, instrument, needle counts correct at conclusion of the case. I attest to the content of the Intraoperative Record and any orders documented therein. Any exceptions are noted below. OB Procedure Charges 12270
--- NOTE | 2022-04-26 15:24 | Anesthesiology Progress Note ---
Date of Service April 26, 2022 Anesthesia Post Procedure Vital Signs Vital Signs: Temp Pulse Resp BP Pulse Ox 04/26/22 15:20 62 100 04/26/22 15:15 65 100 04/26/22 15:13 61 109/57 L 04/26/22 15:10 62 99 04/26/22 15:11 62 90 04/26/22 15:05 69 98 04/26/22 15:04 62 112/57 L 04/26/22 15:00 97 04/26/22 15:00 68 04/26/22 15:00 63 108/58 L 04/26/22 09:11 98.1 F 93 H 16 116/75 04/26/22 08:58 93 H 116/75 Transfer of Care Handoff Completed per policy Notes Mental Status: alert / awake / arousable and participated in evaluation Patient Amnestic to Procedure: Yes Nausea / Vomiting: adequately controlled Pain: adequately controlled Airway Patency, RR, SpO2: stable & adequate BP & HR: stable & adequate Hydration State: stable & adequate Neuraxial Anesthesia: was administered and sensory block is resolving Anesthetic Complications: no major complications apparent and Pt Satisfied with anesthetic care
[2022-04-26] MEDS ORDERED: LACTATED RINGER'S 1,000 ML IV SCH (16:48)
[2022-04-26] MEDS ORDERED: BENZOCAINE 20% AER SPR 82.5 GM CAN EXT PRN (16:48)
[2022-04-26] MEDS ORDERED: ALBUTEROL HFA 8 GM INHALER INH PRN (16:48)
[2022-04-26] MEDS ORDERED: MAGNESIUM HYDROXIDE SUSP 30 ML UDC PO PRN (16:48)
[2022-04-26] MEDS ORDERED: HYDROCORTISONE ACETATE 25 MG SUPP PR PRN (16:48)
[2022-04-26] MEDS ORDERED: diphenhydrAMINE Capsule 25 MG CAP PO PRN (16:48)
[2022-04-26] MEDS ORDERED: PROMETHAZINE HCL 25 MG in SODIUM CHLORIDE 0.9% 50 ML IV PRN (16:48)
[2022-04-26] MEDS ORDERED: SENNA 8.6 MG TAB PO PRN (16:48)
[2022-04-26] MEDS ORDERED: DIPHTHERIA/TETANUS/PERTUSSIS 0.5 ML SYR/VIAL IM ONE (16:48)
[2022-04-26] MEDS ORDERED: KETOROLAC 30 MG/ML VIAL IV PRN (16:48)
[2022-04-26] MEDS: KETOROLAC 30 MG/ML VIAL IV PRN (18:22)
[2022-04-26] MEDS: SIMETHICONE 80 MG CHEW PO SCH ×2 (18:26→21:03)
[2022-04-26] MEDS: OXYTOCIN 30 UNITS in LACTATED RINGER'S 1,000 ML IV SCH (19:58)
[2022-04-26] MEDS: DOCUSATE SODIUM 100 MG CAP PO SCH (21:03)
[2022-04-27] MEDS: KETOROLAC 30 MG/ML VIAL IV PRN (03:37)
[2022-04-27] MEDS: OXYTOCIN 30 UNITS in LACTATED RINGER'S 1,000 ML IV SCH (03:47)
[2022-04-27] MEDS ORDERED: ceFAZolin 2000MG 2,000 MG/15 ML SYR IV SCH (06:00)
[2022-04-27] MEDS ORDERED: DC INTRASPINAL MORPHINE SCH (06:28)
[2022-04-27 06:38] LABS: Basophils # (auto) 0.03 K/uL (0-0.2); Basophils % (auto) 0.3 %; Eosinophils # (auto) 0.09 K/uL (0-0.50); Hematocrit (blood only) 25.8 % (34.1-44.9); Hemoglobin 7.9 g/dl (12.0-16.0); Immature Granulocytes # (auto) 0.04 K/uL (0.00-0.02); Immature Granulocytes % (auto) 0.4 %; Lymphocytes # (auto) 2.45 K/uL (1.2-3.4); Lymphocytes % (auto) 26.9 %; Mean Corpuscular Hemoglobin 25.2 pg (25.0-34.0); Mean Corpuscular Hgb Conc 30.6 g/dL (32.0-36.0); Mean Corpuscular Volume 82.2 fL (80.0-100.0); Mean Platelet Volume 10.7 fL (9.4-12.3); Monocytes # (auto) 0.65 K/uL (0.24-0.82); Monocytes % (auto) 7.1 %; Neutrophils # (auto) 5.85 K/uL (1.4-6.5); Neutrophils % (auto) 64.3 %; Platelet Count 332 K/uL (130-400); RDW Coefficient of Variation 15.1 % (11.5-14.5); RDW Standard Deviation 44.9 fL (36.4-46.3); Red Blood Count 3.14 M/uL (3.93-5.22); White Blood Count 9.11 K/ul (4.8-10.8)
[2022-04-27 07:03] LABS: RBC Morphology Unremarkable
[2022-04-27] MEDS: SIMETHICONE 80 MG CHEW PO SCH ×4 (07:58→20:33)
[2022-04-27] MEDS: FERROUS SULFATE 325 MG TAB PO SCH (07:58)
[2022-04-27] MEDS: PRENATAL VITAMIN 1 TAB PO SCH (07:58)
[2022-04-27] MEDS: DOCUSATE SODIUM 100 MG CAP PO SCH ×2 (07:58→20:34)
--- NOTE | 2022-04-27 08:12 | Obstetrical Progress Note ---
Date of Service April 27, 2022 Assessment & Plan (1) Supervision of normal intrauterine in primigravida: POD#1 doing well. Hgb with appropriate postop drop, patient asymptomatic. Encourage ambulation, advance diet, continue PO hydration today. Subjective Ambulation: ambulating normally Voiding: no voiding problems Diet Tolerance:: regular diet Lochia:: Moderate Review of Systems All systems reviewed & are unremarkable except as noted in HPI & below Physical Exam incision bandaged - rec keep on x24h after surgery, bandage is clean/dry Constitutional WD/WN, vitals as above no acute distress Respiratory normal respiratory effort Cardiovascular Rate/Rhythm: regular rate and regular rhythm Gastrointestinal (Abdomen) Inspection/Auscultation: abdomen normal to inspection; abdomen not distended Percussion/Palpation: abdomen soft Genitourinary OB Exam Abdomen: + fundal height Fundus: + firm; not tender Results & Data ([facility]) Vital Signs (Past 12 Hours) Vital Signs Temp Pulse Resp BP Pulse Ox O2 Del Method 04/27/22 07:15 36.8 C 65 18 102/61 98 Room Air 04/27/22 06:00 16 97 04/27/22 05:00 16 99 04/27/22 03:45 36.8 C 71 18 111/66 97 Room Air 04/27/22 02:02 16 99 04/27/22 03:00 16 98 04/27/22 04:07 18 98 04/27/22 00:57 18 97 04/26/22 23:53 16 99 04/26/22 23:30 36.7 C 59 L 16 100/56 L 98 Room Air 04/26/22 23:00 18 98 04/26/22 21:56 16 99 04/26/22 21:00 16 99
[2022-04-27] MEDS: IBUPROFEN 600 MG TAB PO PRN ×2 (12:12→17:05)
[2022-04-27] MEDS: oxyCODONE/ACETAMINOPHEN 5mg/325mg TAB PO PRN (17:06)
[2022-04-27] MEDS ORDERED: bisacodyL 5 MG TABEC PO SCH (20:00)
[2022-04-28] MEDS: IBUPROFEN 600 MG TAB PO PRN ×5 (01:24→18:44)
[2022-04-28] MEDS: oxyCODONE/ACETAMINOPHEN 5mg/325mg TAB PO PRN ×5 (01:24→18:45)
--- NOTE | 2022-04-28 06:40 | Obstetrical Progress Note ---
Date of Service <Phyllis Grewal DO - Last Filed: 04/28/22 07:59> April 28, 2022 Assessment & Plan <Phyllis Grewal DO - Last Filed: 04/28/22 07:59> (1) Hypothyroid in , antepartum: (2) H/O section: (3) : Weeks of gestation: 27 weeks Qualified Code(s): Z3A.27 - 27 weeks gestation of (4) Depression with anxiety: (5) Adriana's thyroiditis: Plan s/p RLTCS POD 2: -Vital signs reviewed and WNL, Tmax at 36.9 -Hemoglobin reviewed, 9.4 (04/26) 7.9 (04/27) -O+, GBS-, rubella immune -Patient is doing well clinically -Encourage ambulation, monitor and treat pain PRN, monitor lochia -Continue regular diet <Melissa Pfeiffer MD, FACOG - Last Filed: 04/28/22 08:17> (1) Hypothyroid in , antepartum: (2) H/O section: (3) : (4) Depression with anxiety: (5) Adriana's thyroiditis: Day #:: 2 Subjective <Phyllis Grewal DO - Last Filed: 04/28/22 07:59> Nahomy is a 26 y/o female who is POD #2 following repeat delivery at 40 3/7 weeks. Patient was seen and examined at bedside. She reports feeling well overall this morning. States she currently has 2/10 pain after taking Percocet this morning. Yesterday her baby accidentally kicked her incision which caused her a lot of pain and led to some bleeding from the surgical incision. Denies any bleeding from the wound today. Able to urinate without pain, endorses passing gas but has not had a bowel movement. Tolerating meals overnight and able to ambulate some. Has persistent lochia with some improvement this morning. Currently formula feeding and pumping. Constitutional: no fever, no chills or no sweats Respiratory: no cough, no dyspnea or no wheezing Cardiovascular: no chest pain, no palpitations or no calf pain Breast: no breast pain Genitourinary (female): no dysuria Neurologic: no headache(s) Physical Exam <Phyllis Grewal DO - Last Filed: 04/28/22 07:59> Constitutional WD/WN, vitals as above no acute distress Respiratory no respiratory distress Auscultation: lungs clear to auscultation bilaterally; no rales, no rhonchi and no wheezes Cardiovascular RRR, no murmur, no edema Extremities: no calf tenderness and no edema Negative Remington's sign bilaterally. Gastrointestinal (Abdomen) Inspection/Auscultation: normal bowel sounds Genitourinary Uterine fundus firm, palpable below the umbilicus. Surgical incision wound is clean and healing well. Results & Data ([facility]) <Phyllis Grewal DO - Last Filed: 04/28/22 07:59> Vital Signs (Past 12 Hours) Vital Signs Temp Pulse Resp BP Pulse Ox O2 Del Method 04/27/22 23:56 36.4 C L 73 18 109/67 98 Room Air 04/27/22 20:00 36.6 C 72 16 107/68 99 Room Air <Melissa Pfeiffer MD, FACOG - Last Filed: 04/28/22 08:17> Co-Signing Physician Notes Resident Physician Supervision Note: I was present with Dr. Grewal during the history and exam. I discussed the case with the resident and agree with the findings and plan as documented in the note. Any exceptions or clarifications are listed here: stable, doing well overall. had increased incisional pain yesterday when incision kicked by baby. some bleeding then too. pasha po, voiding, ambulating without prob. has not showered yest and dressing in place. +flatus. abd soft ff 2 down, appro tender, incision c/d/i with steris, bloody. ext nt calves. pod#2, need to improve pain control today. get up to shower. discussed incision. routine care. rh pos, ri, breast feeding. hgb noted. Documented By: Melissa Pfeiffer MD, FACOG Resident Activity Tracking <Phyllis Grewal DO - Last Filed: 04/28/22 07:59> Resident Involvement: Resident Care Provided Care Provided: OB Delivery
[2022-04-28 06:55] LABS: Hematocrit (blood only) 26.4 % (34.1-44.9)
[2022-04-28] MEDS: SIMETHICONE 80 MG CHEW PO SCH ×4 (09:14→20:08)
[2022-04-28] MEDS: DOCUSATE SODIUM 100 MG CAP PO SCH ×2 (09:14→20:08)
[2022-04-28] MEDS: FERROUS SULFATE 325 MG TAB PO SCH (09:14)
[2022-04-28] MEDS: PRENATAL VITAMIN 1 TAB PO SCH (09:14)
[2022-04-28] MEDS ORDERED: bisacodyL 10 MG SUPP PR PRN (14:58)
[2022-04-29] MEDS: IBUPROFEN 600 MG TAB PO PRN ×3 (01:55→10:17)
[2022-04-29] MEDS: oxyCODONE/ACETAMINOPHEN 5mg/325mg TAB PO PRN ×3 (01:55→10:17)
[2022-04-29] MEDS: DOCUSATE SODIUM 100 MG CAP PO SCH (08:03)
[2022-04-29] MEDS: PRENATAL VITAMIN 1 TAB PO SCH (08:03)
[2022-04-29] MEDS: FERROUS SULFATE 325 MG TAB PO SCH (08:03)
[2022-04-29] MEDS: SIMETHICONE 80 MG CHEW PO SCH (08:03)
--- NOTE | 2022-04-29 08:37 | Obstetrical Progress Note ---
Date of Service April 29, 2022 Assessment & Plan (1) Encounter for care and examination after delivery: Day 3 s/p rLTCS. Doing well. Stable for discharge. Subjective Ambulation: ambulating normally Voiding: no voiding problems Passing Gas:: Yes Diet Tolerance:: regular diet Lochia:: Moderate Feeding Type:: breast feeding Physical Exam Constitutional WD/WN, vitals as above Respiratory normal respiratory effort; no respiratory distress and no labored breathing Gastrointestinal (Abdomen) Inspection/Auscultation: abdomen normal to inspection; abdomen not distended Percussion/Palpation: abdomen soft; abdomen nontender, no guarding and abdomen not rigid Incision CDI Genitourinary OB Exam Abdomen: + fundal height Fundus: + firm and + relation to umbilicus (Below); not tender or not boggy Results & Data ([facility]) Vital Signs (Past 12 Hours) Vital Signs Temp Pulse Resp BP Pulse Ox O2 Del Method 04/29/22 07:30 36.4 C L 69 16 109/61 99 Room Air 04/29/22 02:19 36.8 C 71 18 107/57 L 98
--- NOTE | 2022-05-02 20:15 | Discharge Summary ---
Date of Service May 02, 2022 Admission HPI Per Admitting Provider 26yo @ 40 10/23, scheduled repeat but hoping to . with: COVID POSITIVE 10/04/21 (SX STARTED 10/03/21) COIVD POSITIVE 03/22/22 (SX STARTED 03/22/22) Hx Hypothyroid-<2.5 with [place] labs Per Dr[address] Pfeiffer, check TFT's @ 16 and 28 weeks Declined 16 week Prior LTCS - Desires *failure to descend C/S SCHEDULED FOR 04/20/[address] CHAIREZ C/S RESCHEDULED FOR 04/26/[address] SCHULZ Discharge Data Consultations 04/26/22 09:24 Consult Anesthesiology Stat Procedures Performed Operation Date: 04/26/22 10:45 Actual Procedures p Section in LD of live male child at 1410 - Gaylelacy Schulz, DO Hospital Course (1) Supervision of normal intrauterine in primigravida: Scheduled repeat section, routine postop care, discharge home POD3. Please see charting for further details. Coding Level of Care Code None Diagnoses Supervision of normal intrauterine in primigravida Z34.00
== END 2022-04-29 10:56 | disposition home or self-care (01) | DRG 788 ==
LOC: 4S1 09:24 → ASU 10:29 → 4E2 18:00
DX: E03.9 Hypothyroidism, unspecified; Z3A.40 40 weeks gestation of pregnancy; O48.0 Post-term pregnancy; O34.211 Maternal care for low transverse scar from previous cesarean delivery; F41.8 Other specified anxiety disorders; O99.344 Other mental disorders complicating childbirth; O99.284 Endocrine, nutritional and metabolic diseases complicating childbirth; Z86.16 Personal history of COVID-19; Z83.3 Family history of diabetes mellitus; Z37.0 Single live birth